=== PATIENT | female | born 1960 | race Caucasian/White ===

== ENCOUNTER 2016-07-10 20:29 | Emergency (ER) | payer OTHER ==
[~2016-07-10] VITALS: Ht 170.2 cm; Wt 79.6 kg
[~2016-07-10 20:29] MED LIST: ONDA4TAB7 SL
[2016-07-10 20:32] VITALS: TEMP 37.5; Ht 170.2 cm; Wt 79.6 kg
[2016-07-10] MEDS ORDERED: MELO7.5T5 PO (21:14)
[2016-07-10] MEDS ORDERED: ARIP1TAB8 PO (21:14)
[2016-07-10] MEDS ORDERED: HYDROCODONE/ACETAMOPHEN 5/325MG TAB PO STA (21:20)
[2016-07-10] MEDS ORDERED: KETOROLAC TROMETHAMINE 30 MG/ML VIAL IV STA (21:20)
[2016-07-10 21:47] LABS: HEMATOCRIT 35.2 % (37-47); MEAN CELL VOLUME 86.1 fL (80-100); MEAN CORPUSCULAR HEMOGLOBIN 29.3 pg (25-34); MEAN CORPUSCULAR HGB CONC 34.1 g/dl (32-36); MEAN PLATELET VOLUME 8.9 fL (7.4-10.4); PLATELET COUNT 176 K/uL (130-400); RED BLOOD COUNT 4.09 M/uL (4.2-5.4); WHITE BLOOD COUNT 7.77 K/uL (4.8-10.8)
[2016-07-10 21:59] LABS: URINE APPEARANCE CLEAR (CLEAR); URINE BILIRUBIN NEG (NEG); URINE COLOR DK YELLOW; URINE EPITHELIAL CELL AUTO 20-30 /lpf (0-5); URINE NITRITE NEG (NEG); URINE SPECIFIC GRAVITY 1.018 (1.000-1.030); UROBILINOGEN NEG (NEG); ZZUR CULT IF INDIC CLEAN CATCH NO
[2016-07-10 22:00] LABS: INR 1.1 (0.9-1.1); MANUAL MICROSCOPIC REQUIRED? NO; PARTIAL THROMBOPLASTIN RATIO 1.3; PROTHROMBIN TIME (PATIENT) 11.4 SECONDS (9.0-12.0); REVIEW REQ? NO
[2016-07-10 22:08] LABS: POINT OF CARE TROPONIN I 0.02 ng/ml (0-0.045)
[2016-07-10 22:15] LABS: ALT/SGPT 61 U/L (12-78); BLOOD UREA NITROGEN 11 mg/dl (7-18); BUN/CREATININE RATIO 13.6 (10-20); CARBON DIOXIDE 26 mmol/L (21-32); CHLORIDE 99 mmol/L (98-107); GLUCOSE 134 mg/dl (70-99); POTASSIUM 3.6 mmol/L (3.5-5.1); SODIUM 134 mmol/L (136-145)
[2016-07-10 22:20] LABS: ALKALINE PHOSPHATASE 741 U/L (45-117); AST/SGOT 120 U/L (15-37)
[2016-07-10 22:23] LABS: CALCIUM 9.9 mg/dl (8.5-10.1)
--- NOTE | 2016-07-10 22:28 | DIAGNOSTIC IMAGING REPORT ---
LUMBAR SPINE 5 VIEWS HISTORY: Pain low back pain/tension SI joints COMPARISON: None. FINDINGS: There is no fracture. Mild scoliosis. Mild degenerative disc change. IMPRESSION: Mild degenerative change. Mild scoliosis. No acute process. Electronically signed by: Shiraz Marquez M.D. 07/10/2016 10:25 PM Dictated Date/Time: 07/10/2016 10:25 PM
--- NOTE | 2016-07-10 22:29 | DIAGNOSTIC IMAGING REPORT ---
CHEST 2 VIEWS ROUTINE CLINICAL HISTORY: dizzy/ shoulder pain pain COMPARISON STUDY: No previous studies for comparison. FINDINGS: The bones soft tissues and hemidiaphragms are normal. The cardiomediastinal silhouette is normal. The lungs are clear. The pulmonary vasculature is normal. IMPRESSION: Negative chest. Electronically signed by: Shiraz Marquez M.D. 07/10/2016 10:27 PM Dictated Date/Time: 07/10/2016 10:27 PM
--- NOTE | 2016-07-10 22:29 | DIAGNOSTIC IMAGING REPORT ---
LEFT SHOULDER MIN 2 VIEWS ROUTINE CLINICAL HISTORY: shoulder pain/injury trauma. Pain. COMPARISON: None. DISCUSSION: Moderate degenerative change glenohumeral as well as acromioclavicular joint. No well-defined acute bony abnormality. Moderate degenerative change. No acute process. IMPRESSION: Moderate degenerative change. No acute process. Electronically signed by: Shiraz Marquez M.D. 07/10/2016 10:26 PM Dictated Date/Time: 07/10/2016 10:26 PM
--- NOTE | 2016-07-10 22:30 | DIAGNOSTIC IMAGING REPORT ---
THORACIC SPINE 3 VIEWS HISTORY: Pain mid to lower thoracic spine pain/injury COMPARISON: None. FINDINGS: There is no fracture. Mild scoliosis. Moderate degenerative disc change. IMPRESSION: No fracture or subluxation within the thoracic spine. Moderate degenerative change. Electronically signed by: Shiraz Marquez M.D. 07/10/2016 10:28 PM Dictated Date/Time: 07/10/2016 10:27 PM
[2016-07-10 22:31] LABS: POLYCHROMASIA 1+
[2016-07-10 22:33] LABS: BASO ABS # 0.08 K/uL (0-0.2); COMPLETE YES; LYMPH ABS # 1.71 K/uL (1.2-3.4)
[2016-07-11] MEDS ORDERED: NORCO 5/325MG HOME PACK PO ONE (00:30)
[2016-07-11] MEDS ORDERED: HYDR-5688 PO (00:36)
--- NOTE | 2016-07-11 00:38 | EMERGENCY ROOM VISIT NOTE ---
History First contact with patient: 20:43 Chief Complaint: BACK PAIN Stated Complaint: BACK/ABD PAIN, DIZZY, SHAKEY History of Present Illness The patient is a 56 year old female who presents to the Emergency Room with complaints of back pain. The patient states that a few days ago she was lifting a bucket which weighed approximately 35 pounds while she was bent over in a closet and felt a pop in her mid back and a burning sensation across her upper back on the left side. Since that time she's also had some low back discomfort. The patient states that the pain does not radiate down her legs but she does have some discomfort in her thighs bilaterally. She also admits to some pain into her left shoulder. She states that she has been taking Tylenol with some relief of the pain. She states that her back was feeling better but today it started bothering her again. The patient had Mobic at home from a prior injury which she took without any relief. The patient also states that she feels slightly nauseated but has not vomited. She denies any change in bowel habits. The patient denies any urinary symptoms of frequency, urgency , dysuria or hematuria. The patient denies any abdominal pain. The patient denies any chest pain or shortness of breath. The patient states she has not gone to her family doctor because she has been going to [place] to visit her . She states "I do not have time to go to the doctor". Review of Systems 10 system review was performed and was negative unless stated otherwise history of present illness. Past Medical/Surgical History Medical Problems: (1) HTN (hypertension) (2) Kidney stone Surgical Problems: (1) H/O mastectomy Family History FH: HTN (hypertension) Social History Smoking Status: Never Smoker Marital Status: Housing Status: lives with family Occupation Status: employed Current/Historical Medications Scheduled Aripiprazole (Abilify), 10 MG PO HS Scheduled PRN Meloxicam (Mobic), 7.5 MG PO DAILY PRN for Pain Allergies Coded Allergies: Latex1 -Allergic Contact Dermititis (Verified Allergy, Unknown, BURNING, DERMATITIS, 05/14/14) Physical Exam Vital Signs Date Time Temp Pulse Resp B/P Pulse Ox O2 Delivery O2 Flow Rate FiO2 07/11/16 00:11 77 18 124/73 98 Room Air 07/10/16 22:35 88 18 122/69 99 Room Air 07/10/16 20:32 37.5 121 18 140/84 96 Room Air Physical Exam GENERAL: 56-year-old white female appears in no acute distress. MENTAL Status: Alert and oriented 3. MOUTH: Mucosa is moist NECK: Supple, no lymphadenopathy noted. No carotid bruits noted. LUNGS: Clear auscultation without wheezes rales or rhonchi. CARDIAC: Regular rate and rhythm without murmur. Pulses is full and equal throughout. BACK: No CVA tenderness noted. ABDOMEN: Positive bowel sounds all 4 quadrants. Soft, nontender to palpation without organomegaly or masses. THORACIC SPINE: No gross bony deformity noted. The patient is tender to palpation over the mid to lower thoracic spinous processes. LUMBAR SPINE: No gross bony deformity noted. No erythema or edema noted. The patient has tenderness palpation over the lower lumbar region bilaterally especially over the SI joints. Limited range of motion secondary to pain. LEFT shoulder: No gross bony deformity noted. The patient is tender to palpation over the mid to superior scapular region as well as over the humeral head. She has full range of motion of the shoulder. [employer] strength is 5 out of 5 as compared to the right. NEURO: Patient is able to heel and toe walk without difficulty. Bilateral patellar and Achilles reflexes are 2+. Negative straight leg raise bilaterally. Medical Decision & Procedures ER Provider Diagnostic Interpretation: THORACIC SPINE 3 VIEWS HISTORY: Pain mid to lower thoracic spine pain/injury COMPARISON: None. FINDINGS: There is no fracture. Mild scoliosis. Moderate degenerative disc change. IMPRESSION: No fracture or subluxation within the thoracic spine. Moderate degenerative change. Electronically signed by: Shiraz Marquez M.D. 07/10/2016 10:28 PM LEFT SHOULDER MIN 2 VIEWS ROUTINE CLINICAL HISTORY: shoulder pain/injury trauma. Pain. COMPARISON: None. DISCUSSION: Moderate degenerative change glenohumeral as well as acromioclavicular joint. No well-defined acute bony abnormality. Moderate degenerative change. No acute process. IMPRESSION: Moderate degenerative change. No acute process. Electronically signed by: Shiraz Marquez M.D. LUMBAR SPINE 5 VIEWS HISTORY: Pain low back pain/tension SI joints COMPARISON: None. FINDINGS: There is no fracture. Mild scoliosis. Mild degenerative disc change. IMPRESSION: Mild degenerative change. Mild scoliosis. No acute process. Electronically signed by: Shiraz Marquez M.D. 07/10/2016 10:25 PM CHEST 2 VIEWS ROUTINE CLINICAL HISTORY: dizzy/ shoulder pain pain COMPARISON STUDY: No previous studies for comparison. FINDINGS: The bones soft tissues and hemidiaphragms are normal. The cardiomediastinal silhouette is normal. The lungs are clear. The pulmonary vasculature is normal. IMPRESSION: Negative chest. Electronically signed by: Shiraz Marquez M.D. Laboratory Results 07/10/16 21:40 Red Blood Count 4.09, Mean Corpuscular Volume 86.1, Mean Corpuscular Hemoglobin 29.3, Mean Corpuscular Hemoglobin Concent 34.1, Mean Platelet Volume 8.9 07/10/16 21:40 Test 07/10/16 21:40 07/10/16 21:48 07/10/16 23:55 White Blood Count 7.77 K/uL (4.8-10.8) Red Blood Count 4.09 M/uL (4.2-5.4) Hemoglobin 12.0 g/dL (12.0-16.0) Hematocrit 35.2 % (37-47) Mean Corpuscular Volume 86.1 fL (80-100) Mean Corpuscular Hemoglobin 29.3 pg (25-34) Mean Corpuscular Hemoglobin Concent 34.1 g/dl (32-36) Platelet Count 176 K/uL (130-400) Mean Platelet Volume 8.9 fL (7.4-10.4) RDW Standard Deviation 51.2 fL (36.4-46.3) RDW Coefficient of Variation 16.3 % (11.5-14.5) Nucleated RBC Absolute Count (auto) 0.18 K/uL (0-0) Neutrophils % (Manual) 57.0 % Lymphocytes % (Manual) 22.0 % Monocytes % (Manual) 18.0 % Eosinophils % (Manual) 1.0 % Basophils % (Manual) 1.0 % Myelocytes % 1.0 % Nucleated Red Blood Cells % 2.3 % Neutrophils # (Manual) 4.43 K/uL (1.4-6.5) Total Absolute Neutrophils 4.43 K/uL (1.4-6.5) Lymphocytes # (Manual) 1.71 K/uL (1.2-3.4) Total Absolute Lymphocytes 1.71 K/uL (1.2-3.4) Monocytes # (Manual) 1.40 K/uL (0.11-0.59) Eosinophils # (Manual) 0.08 K/uL (0-0.5) Basophils # (Manual) 0.08 K/uL (0-0.2) Myelocytes # 0.08 K/uL (0-0) Polychromasia 1+ Prothrombin Time 11.4 SECONDS (9.0-12.0) Prothromb Time International Ratio 1.1 (0.9-1.1) Activated Partial Thromboplast Time 33.6 SECONDS (21.0-31.0) Partial Thromboplastin Ratio 1.3 Urine Color DK YELLOW Urine Appearance CLEAR (CLEAR) Urine pH 5.0 (4.5-7.5) Urine Specific Starbuck 1.018 (1.000-1.030) Urine Protein NEG (NEG) Urine Glucose (UA) NEG (NEG) Urine Ketones NEG (NEG) Urine Occult Blood NEG (NEG) Urine Nitrite NEG (NEG) Urine Bilirubin NEG (NEG) Urine Urobilinogen NEG (NEG) Urine Leukocyte Esterase SMALL (NEG) Urine WBC (Auto) 5-10 /hpf (0-5) Urine RBC (Auto) 0-4 /hpf (0-4) Urine Hyaline Casts (Auto) 5-10 /lpf (0-5) Urine Epithelial Cells (Auto) 20-30 /lpf (0-5) Urine Bacteria (Auto) NEG (NEG) Anion Gap 9.0 mmol/L (3-11) Est Creatinine Clear Calc Drug Dose 83.3 ml/min Estimated GFR () 94.2 Estimated GFR (Non- 81.3 BUN/Creatinine Ratio 13.6 (10-20) Calcium Level 9.9 mg/dl (8.5-10.1) Total Bilirubin 1.2 mg/dl (0.2-1) Direct Bilirubin 0.6 mg/dl (0-0.2) Aspartate Amino Transf (AST/SGOT) 120 U/L (15-37) Alanine Aminotransferase (ALT/SGPT) 61 U/L (12-78) Alkaline Phosphatase 741 U/L (45-117) Total Creatine Kinase 155 U/L (26-192) Creatine Kinase MB < 0.5 ng/ml (0.5-3.6) Creatine Kinase MB Ratio (0-3.0) Total Protein 7.0 gm/dl (6.4-8.2) Albumin 2.7 gm/dl (3.4-5.0) Lipase 169 U/L (73-393) WM-Nsm-D-Type Natriuretic Peptide 215 pg/ml (0-900) Bedside Troponin I 0.020 ng/ml (0-0.045) Medications Administered Medications (Trade) Dose Ordered Sig/Allison Route Start Time Stop Time Status Last Admin Dose Admin Ketorolac Tromethamine (Toradol Inj) 30 mg NOW STAT IV 07/10/16 21:20 07/10/16 21:24 DC 07/10/16 21:31 30 MG Acetaminophen/ Hydrocodone Bitart ([place] 5/325 Tab) 2 tab NOW STAT PO 07/10/16 21:20 07/10/16 21:24 DC 07/10/16 21:30 2 TAB ECG Indication: other (di) Rhythm: normal sinus Findings: no acute ischemic change ED Course The patient was evaluated. IV access was obtained. The patient was placed on a monitor. EKG was ordered and interpreted by myself as above without any acute findings. CBC and differential, renal profile, LFTs and lipase levels were ordered. CK-MB, coags, pointing care troponin and BNP were ordered. Chest x-ray was ordered and interpreted by the radiologist and myself as above without any acute findings. Left shoulder, thoracic spine, lumbar spine x-rays were ordered and interpreted by the radiologist and myself as above with degenerative changes but no acute findings.. The patient was given Toradol 30 mg IV and [place] 5/325 mg 2 tablets by mouth for pain. The patient's labs are reviewed. The patient's alkaline phosphatase and some liver enzymes were elevated. I discussed the case with Dr. Ortega who agreed with treatment plan. Repeat EKG was ordered and reviewed without any acute ST changes. Initial troponin was 0.02 and repeat in 2 hours was unchanged. Ultrasound of the gallbladder was ordered and revealed a normal gallbladder but there were some hyper echogenic and hypoechogenic lesions on the liver suggesting cysts and fatty liver as well as possible hemangioma but a follow-up MRI on a nonemergent basis was recommended. I discussed with the patient about staying as an inpatient for further evaluation. The patient does not want to stay. The patient was informed of all findings. The patient was given a Glenwood home pack to take as directed. The patient was discharged home in stable condition with family members driving. Medical Decision Differential diagnosis include acute cholecystitis, neoplasm, compression fracture, spinal fracture, muscular strain, acute NM Impression Primary Impression: Thoracolumbar back pain Additional Impressions: Elevated LFTs Abnormal liver ultrasound Departure Information Dispostion Home / Self-Care Condition GOOD Prescriptions Hydrocodone/Acetaminophen 5MG/325MG (Glenwood 5MG/325MG) Tab 1-2 TABLET PO Q6 Y for Pain for 3 Days, #20 TAB For Initial Treatment Prov: Yasemin Marquez PA-C 07/11/16 Referrals No Doctor, Assigned (PCP) Forms HOME CARE DOCUMENTATION FORM, IMPORTANT VISIT INFORMATION Patient Instructions My Social Media Simplified Additional Instructions Take Glenwood as needed for pain. Do not drive while taking the Glenwood. Do not take additional Tylenol while taking the [place]wood. Avoid staying in any one position for any extended period of time. May try ice and/or heat to affected area intermittently over the next 24 hours. Follow-up with your family physician next week for reevaluation and referral for MRI of the liver. If you have any worsening of symptoms, severe chest pain, shortness of breath, uncontrolled nausea vomiting return to ER immediately. Problem Qualifiers
[2016-07-11 00:43] VITALS: BP 124/73; PULSE 77; O2SAT 98
--- NOTE | 2016-07-11 07:08 | DIAGNOSTIC IMAGING REPORT ---
ULTRASOUND RIGHT UPPER QUADRANT ABDOMEN CLINICAL HISTORY: Elevated hepatic transaminases. COMPARISON STUDY: No priors. TECHNIQUE: Real-time, grayscale, and color flow sonography of the right upper quadrant of the abdomen was performed. Images are reviewed in the transverse and longitudinal planes. FINDINGS: Liver: The liver is enlarged, measuring over 20 cm in length. The liver demonstrates heterogeneously increased echotexture consistent with hepatic steatosis. There is no intrahepatic biliary ductal dilatation. The main portal vein is patent. There is an 8 mm well-circumscribed hypoechoic lesion within the anterior right lobe. A 3.4 cm indeterminate hyperechoic focus is present within the right hepatic lobe. Gallbladder: The gallbladder is normal in appearance. No gallstones are identified. There is no gallbladder wall thickening or pericholecystic fluid. A sonographic Lechuga's sign is reportedly absent. The common bile duct measures up to 0.5 cm in diameter. Pancreas: Visualized portions of the pancreatic head and body are normal in appearance. The splenic vein is patent. Right kidney: Survey images of the right kidney demonstrate normal size and echotexture. There is no hydronephrosis. Ascites: None. IMPRESSION: 1. No acute sonographic abnormality is identified. No gallstones are seen. 2. Hepatomegaly and hepatic steatosis. 3. There is a large indeterminate hyperechoic focus present in the right lobe as well as an 8 mm hypoechoic lesion in the right lobe. These are of indeterminant significance and may represent hemangiomas, foci of more focal fat/fatty sparing, or focal nodular hyperplasia. Correlation with a nonemergent contrast-enhanced MRI of the liver is recommended for further interrogation. Electronically signed by: Donavan Del Toro M.D. 07/11/2016 7:06 AM Dictated Date/Time: 07/11/2016 7:03 AM
[2016-09-22] MEDS ORDERED: DIPH25CA5 PO (20:30)
[2016-10-25] MEDS ORDERED: DXM/4 PO ×2 (14:21)
[2016-10-25] MEDS ORDERED: ONDA8TAB6 PO (14:21)
[2016-10-25] MEDS ORDERED: OXYC1TAB3 PO (14:21)
[2016-10-25] MEDS ORDERED: PROC1TAB5 PO (14:21)
== END 2016-07-11 00:55 | disposition home or self-care (01) ==
LOC: C.EDB 20:30
DX: M54.5 Low back pain (principal); R94.5 Abnormal results of liver function studies; I10 Essential (primary) hypertension; Z87.442 Personal history of urinary calculi; Z82.49 Family history of ischemic heart disease and other diseases of the circulatory system; Z79.899 Other long term (current) drug therapy

== ENCOUNTER 2016-09-22 19:48 | Emergency (ER) | payer OTHER ==
[~2016-09-22] VITALS: Ht 170.2 cm; Wt 72.3 kg
[~2016-09-22 19:48] MED LIST changes: +ARIP1TAB8 PO; +MELO7.5T5 PO; -ONDA4TAB7 SL
[2016-09-22 19:51] VITALS: TEMP 36.6; Ht 170.2 cm; Wt 72.3 kg
[2016-09-22] MEDS ORDERED: SODIUM CHLORIDE 0.9% 1000ML 1,000 ML IV STA ×2 (20:10)
[2016-09-22] MEDS ORDERED: HYDR-5688 PO (20:24)
[2016-09-22 20:27] LABS: HEMATOCRIT 34.8 % (37-47); MEAN CELL VOLUME 92.6 fL (80-100); MEAN CORPUSCULAR HEMOGLOBIN 30.3 pg (25-34); MEAN CORPUSCULAR HGB CONC 32.8 g/dl (32-36); RED BLOOD COUNT 3.76 M/uL (4.2-5.4); WHITE BLOOD COUNT 8.47 K/uL (4.8-10.8)
[2016-09-22] MEDS ORDERED: LAMO25TA PO (20:27)
[2016-09-22] MEDS ORDERED: HYDR25CA PO (20:28)
[2016-09-22] MEDS ORDERED: ESCI1TAB6 PO (20:30)
[2016-09-22] MEDS ORDERED: BND25 PO (20:30)
[2016-09-22] MEDS ORDERED: PRLSR20 PO (20:31)
[2016-09-22 20:32] LABS: URINE APPEARANCE CLEAR (CLEAR); URINE BILIRUBIN NEG (NEG); URINE COLOR YELLOW; URINE NITRITE NEG (NEG); URINE PH 5.5 (4.5-7.5); URINE SPECIFIC GRAVITY 1.012 (1.000-1.030); UROBILINOGEN NEG (NEG)
[2016-09-22 20:40] VITALS: O2SAT 94
[2016-09-22 20:43] LABS: ALT/SGPT 96 U/L (12-78); BLOOD UREA NITROGEN 8 mg/dl (7-18); BUN/CREATININE RATIO 9.3 (10-20); CALCIUM 10.2 mg/dl (8.5-10.1); CARBON DIOXIDE 23 mmol/L (21-32); CHLORIDE 100 mmol/L (98-107); CREATININE 0.84 mg/dl (0.60-1.20); GLUCOSE 99 mg/dl (70-99); MAGNESIUM 1.9 mg/dl (1.8-2.4); MANUAL MICROSCOPIC REQUIRED? NO; POTASSIUM 3.7 mmol/L (3.5-5.1); REVIEW REQ? NO; SODIUM 135 mmol/L (136-145)
[2016-09-22 20:52] LABS: ALKALINE PHOSPHATASE 480 U/L (45-117); AST/SGOT 218 U/L (15-37)
[2016-09-22] MEDS ORDERED: ONDANSETRON 8 MG/54 ML D5W IV STA (21:11)
[2016-09-22 21:47] LABS: MEAN PLATELET VOLUME 9.1 fL (7.4-10.4); PLATELET COUNT 65 K/uL (130-400)
[2016-09-22 21:48] LABS: ANISOCYTOSIS PRESENT; BASOPHIL % 3.5 %; COMPLETE YES; EOSINOPHIL % 0.9 %; LYMPH ABS # 2.18 K/uL (1.2-3.4); LYMPHOCYTE % 25.7 %; META ABS # 0.37 K/uL (0-0); METAMYELOCYTE % 4.4 %; MYELOCYTE % 3.5 %; NEUTROPHILS % 49.6 %; PLT ESTIMATE DECREASED; POLYCHROMASIA 2+
--- NOTE | 2016-09-22 22:13 | DIAGNOSTIC IMAGING REPORT ---
SINGLE VIEW CHEST CLINICAL HISTORY: Nausea. Vomiting. Weight loss FINDINGS: An AP, portable, upright chest radiograph is compared to report of study dated 07/10/2016. The examination is degraded by portable technique and patient rotation. The heart is top normal for projection. The pulmonary vasculature is noncongested. Bibasilar airspace opacities likely represent atelectasis. Chronic interstitial thickening is unchanged no large pleural effusion or pneumothorax is seen. The skeletal structures are osteopenic. There are healed right-sided rib fractures. IMPRESSION: Bibasilar airspace opacities likely represent atelectasis. Clinical correlation will be required. Electronically signed by: Donavan Del Toro M.D. 09/22/2016 10:12 PM Dictated Date/Time: 09/22/2016 10:09 PM
[2016-09-22] MEDS ORDERED: OPTIRAY 320 IV PRN (23:15)
[2016-09-23] MEDS ORDERED: ONDANSETRON HOME PACK 4MG OD TAB PO ONE (01:30)
[2016-09-23 01:39] VITALS: BP 150/85; PULSE 85; O2SAT 96
--- NOTE | 2016-09-23 03:22 | EMERGENCY ROOM VISIT NOTE ---
History Report prepared by Jareth: Nona Mims Under the Supervision of: Dr. John Montesinos M.D. First contact with patient: 20:10 Chief Complaint: VOMITING Stated Complaint: VOMITING,NAUESA History of Present Illness The patient is a 56 year old female who presents to the Emergency Room with complaints of intermittent vomiting for the past several weeks. The patient reports that she has not been well and thought it would get better on its own. She states she did go to her PCP who gave her omeprazole. She states that she has taken the medicine twice with no relief. The patient's family notes that she has had a large amount of weight loss in the last two months. The patient reports over the past six she has lost 47 pounds. The patient complains of weakness, nausea, loss of appetite, shortness of breath when walking, and dizziness. The patient notes that when she moves her head it feels like the room is spinning and when she stands she becomes lightheaded. The patient notes that she has vomited twice. Pt denies LOC, headache, fevers, chills, diaphoresis , visual changes, neck pain, chest pain, abdominal pain, back pain, diarrhea, melena, hematochezia, urinary symptoms, numbness, lymphadenopathy, rash, or other complaints. Source of History: patient Onset: several weeks Position: other (global) Quality: other (global) Timing: intermittent Associated Symptoms: + SOB, + nausea, + weakness Note: The patient complains of loss of appetite and dizziness. Review of Systems See HPI for pertinent positives and negatives. A total of ten systems were reviewed and were otherwise negative. Past Medical & Surgical Medical Problems: (1) Breast CA (2) HTN (hypertension) (3) Kidney stone Surgical Problems: (1) H/O mastectomy Family History FH: HTN (hypertension) Social History Smoking Status: Never Smoker Marital Status: Housing Status: lives with family Occupation Status: employed Current/Historical Medications Scheduled Aripiprazole (Abilify), 10 MG PO HS Diphenhydramine Hcl (Benadryl), 25 MG PO HS Escitalopram Oxalate (Lexapro), 5 MG PO DAILY Hydroxyzine Pamoate (Vistaril), 1 CAP PO TID Lamotrigine (Lamictal), 50 MG PO QAM Omeprazole (Prilosec), 20 MG PO DAILY Scheduled PRN Hydrocodone/Acetaminophen 5MG/325MG ([place] 5MG/325MG), 1 TAB PO TID PRN for Pain Meloxicam (Mobic), 7.5 MG PO DAILY PRN for Pain Allergies Coded Allergies: Latex1 -Allergic Contact Dermititis (Verified Allergy, Unknown, BURNING, DERMATITIS, 09/22/16) Physical Exam Vital Signs Date Time Temp Pulse Resp B/P (MAP) Pulse Ox O2 Delivery O2 Flow Rate FiO2 09/23/16 01:39 85 16 150/85 96 09/23/16 01:03 87 09/22/16 23:55 85 16 141/81 93 Room Air 09/22/16 21:41 87 16 142/79 92 Room Air 09/22/16 20:51 81 09/22/16 20:40 94 Room Air 09/22/16 20:37 85 148/89 93 132/85 106 128/85 09/22/16 19:51 36.6 112 18 149/90 96 Room Air Physical Exam GENERAL: Awake, alert, tired appearing, in no distress HENT: Normocephalic, atraumatic. Oropharynx unremarkable. EYES: Normal conjunctiva. Sclera non-icteric. NECK: Supple. No nuchal rigidity. FROM. No JVD. RESPIRATORY: Clear to auscultation. CARDIAC: Regular rate, normal rhythm. Extremities warm and well perfused. Pulses equal. ABDOMEN: Soft, non-distended. No tenderness to palpation. No rebound or guarding. No masses. RECTAL: Deferred. MUSCULOSKELETAL: Chest examination reveals no tenderness. The back is symmetrical on inspection without obvious abnormality. There is no CVA tenderness to palpation. No joint edema. LOWER EXTREMITIES: Calves are equal size bilaterally and non-tender. Trace edema. No discoloration. NEURO: Normal sensorium. No sensory or motor deficits noted. SKIN: No rash or jaundice noted. Medical Decision & Procedures ER Provider Diagnostic Interpretation: Radiology results as stated below per my review and radiologist interpretation: SINGLE VIEW CHEST CLINICAL HISTORY: Nausea. Vomiting. Weight loss FINDINGS: An AP, portable, upright chest radiograph is compared to report of study dated 07/10/2016. The examination is degraded by portable technique and patient rotation. The heart is top normal for projection. The pulmonary vasculature is noncongested. Bibasilar airspace opacities likely represent atelectasis. Chronic interstitial thickening is unchanged no large pleural effusion or pneumothorax is seen. The skeletal structures are osteopenic. There are healed right-sided rib fractures. IMPRESSION: Bibasilar airspace opacities likely represent atelectasis. Clinical correlation will be required. Electronically signed by: Donavan Del Toro M.D. 09/22/2016 10:12 PM Dictated Date/Time: 09/22/2016 10:[address] ABDOMEN & PELVIS: Findings: Mottled appearance of the osseous structures, may be from metastasis or multiple myeloma. No evidence of appendicitis or colitis. Nonobstructive bowel gas pattern. Small left pleural effusion. Fatty liver. Right breast implant. Radiologist: Suri Hamilton M.D. Study ready at 00:01 and initial results transmitted at 00:51. US GALLBLADDER: Findings: No gallstones or biliary ductal dilation. Echogenic liver suggesting fatty infiltration or hepatocellular disease. No hyperechoic foci in the liver, the largest measures 1 cm. Small hyperechoic focus related to the right kidney. Radiologist: Suri Hamilton M.D. Study ready at 23:47 and intial results transmitted at 23:49. Laboratory Results 09/22/16 20:15 Red Blood Count 3.76, Mean Corpuscular Volume 92.6, Mean Corpuscular Hemoglobin 30.3, Mean Corpuscular Hemoglobin Concent 32.8, Mean Platelet Volume 9.1 09/22/16 20:15 Test 09/22/16 20:15 White Blood Count 8.47 K/uL (4.8-10.8) Red Blood Count 3.76 M/uL (4.2-5.4) Hemoglobin 11.4 g/dL (12.0-16.0) Hematocrit 34.8 % (37-47) Mean Corpuscular Volume 92.6 fL (80-100) Mean Corpuscular Hemoglobin 30.3 pg (25-34) Mean Corpuscular Hemoglobin Concent 32.8 g/dl (32-36) Platelet Count 65 K/uL (130-400) Mean Platelet Volume 9.1 fL (7.4-10.4) RDW Standard Deviation 62.1 fL (36.4-46.3) RDW Coefficient of Variation 18.6 % (11.5-14.5) Nucleated RBC Absolute Count (auto) 2.13 K/uL (0-0) Neutrophils % (Manual) 49.6 % Lymphocytes % (Manual) 25.7 % Monocytes % (Manual) 12.4 % Eosinophils % (Manual) 0.9 % Basophils % (Manual) 3.5 % Metamyelocytes % 4.4 % Myelocytes % 3.5 % Nucleated Red Blood Cells % 25.2 % Neutrophils # (Manual) 4.20 K/uL (1.4-6.5) Total Absolute Neutrophils 4.20 K/uL (1.4-6.5) Lymphocytes # (Manual) 2.18 K/uL (1.2-3.4) Total Absolute Lymphocytes 2.18 K/uL (1.2-3.4) Monocytes # (Manual) 1.05 K/uL (0.11-0.59) Eosinophils # (Manual) 0.08 K/uL (0-0.5) Basophils # (Manual) 0.30 K/uL (0-0.2) Metamyelocytes # 0.37 K/uL (0-0) Myelocytes # 0.30 K/uL (0-0) Platelet Estimate DECREASED Polychromasia 2+ Anisocytosis PRESENT Urine Color YELLOW Urine Appearance CLEAR (CLEAR) Urine pH 5.5 (4.5-7.5) Urine Specific [place] 1.012 (1.000-1.030) Urine Protein NEG (NEG) Urine Glucose (UA) NEG (NEG) Urine Ketones NEG (NEG) Urine Occult Blood NEG (NEG) Urine Nitrite NEG (NEG) Urine Bilirubin NEG (NEG) Urine Urobilinogen NEG (NEG) Urine Leukocyte Esterase NEG (NEG) Anion Gap 12.0 mmol/L (3-11) Est Creatinine Clear Calc Drug Dose 71.0 ml/min Estimated GFR () 88.8 Estimated GFR (Non- 76.6 BUN/Creatinine Ratio 9.3 (10-20) Calcium Level 10.2 mg/dl (8.5-10.1) Magnesium Level 1.9 mg/dl (1.8-2.4) Total Bilirubin 1.3 mg/dl (0.2-1) Direct Bilirubin 0.5 mg/dl (0-0.2) Aspartate Amino Transf (AST/SGOT) 218 U/L (15-37) Alanine Aminotransferase (ALT/SGPT) 96 U/L (12-78) Alkaline Phosphatase 480 U/L (45-117) Total Creatine Kinase 63 U/L (26-192) Creatine Kinase MB < 0.5 ng/ml (0.5-3.6) Creatine Kinase MB Ratio (0-3.0) Troponin I < 0.015 ng/ml (0-0.045) Total Protein 7.1 gm/dl (6.4-8.2) Albumin 3.2 gm/dl (3.4-5.0) Lipase 217 U/L (73-393) Thyroid Stimulating Hormone (TSH) 6.460 uIu/ml (0.300-4.500) Laboratory results reviewed by me Medications Administered Medications (Trade) Dose Ordered Sig/Allison Route Start Time Stop Time Status Last Admin Dose Admin Sodium Chloride 1,000 ml @ 125 mls/hr Q8H STAT IV 09/22/16 20:10 09/23/16 02:11 DC 09/22/16 20:10 125 MLS/HR Sodium Chloride 1,000 ml @ 999 mls/hr Q1H1M STAT IV 09/22/16 20:10 09/22/16 21:10 DC 09/22/16 20:10 999 MLS/HR Ondansetron HCl (Zofran 8mg Iv) 8 mg NOW STAT IV 09/22/16 21:11 09/22/16 21:13 DC 09/22/16 21:11 8 MG Ondansetron HCl (ZOFRAN ODT 4MG Home Pack) 1 homepack UD ONCE PO 09/23/16 01:30 09/23/16 01:31 DC 09/23/16 01:37 1 HOMEPACK ECG Indication: vomiting Rate (beats per minute): 86 Rhythm: normal sinus Findings: no acute ischemic change, no ectopy ED Course 2010: Ordered NSS 1000 ml @ 999 mls/hr IV, NSS 1000 ml @ 125 mls/hr IV. 2018: The patient was evaluated in room C10. A complete history and physical exam was performed. 2110: Ordered Zofran 8mg Iv 8mg IV. 0102: I reevaluated the patient and updated her about the possibilities of her results. 0109: Discussed the patient's case Dr. Gordon. He is going to message oncology and her PCP to arrange a follow up immediately. 0127: I reevaluated the patient and she is comfortable with going home and doing everything as an outpatient. Discussed results and discharge instructions : She verbalized understanding and agreement. The patient is ready for discharge. 0130: Ordered Ondansetron HCl 1 homepack PO. Medical Decision Medication Reconciliation: I attest that I have personally reviewed the patient' s current medication list Blood pressure screening: Patient was found to have an elevated blood pressure and was referred to their primary doctor for recheck and further treatment. Triage Nursing notes reviewed. The patient's presentation and history were concerning for nausea, vomiting, weight loss, weakness Etiologies such as malignancy, peptic ulcer disease, biliary pathology, pancreatitis, metabolic, infection, hypo/hyperglycemia, electrolyte abnormalities, cardiac sources, intracerebral event, toxicologic, neurologic, as well as others were entertained. The patient was evaluated. She was hemodynamically stable. She was hydrated. Blood work was obtained. Imaging was ordered. The patient had an unremarkable CBC except for thrombocytopenia. Her chemistry panel revealed moderate elevations of liver function tests as well as alkaline phosphatase. The patient had an unremarkable lipase. Urinalysis unremarkable. Cardiac markers negative. The patient had no evidence of cholecystitis on gallbladder ultrasound. Her CT imaging of the pelvis revealed no evidence of intra- abdominal pathology however she had significant osseous abnormality which was concerning for multiple myeloma versus metastatic disease. Patient does have a history of breast cancer about 11 years ago. As the patient is doing relatively well I discussed conservative management with her and family. They do feel very comfortable with this. I did [facility] the [facility] who will message her primary office as well as hematology/oncology. The patient will contact the office Friday morning for further direction. If she worsens in any way she will be back. She was counseled on avoidance of Tylenol and alcohol due to the liver functions. She was also counseled on avoidance of aspirin and anti- inflammatories secondary to her thermostat gi. Bleeding precautions are given. The patient felt comfortable as did family. She worsens in any way she will be back to emergency department immediately. She was given Zofran to go home with. I gave my usual and customary discussion regarding this issue. By the evaluation outlined above other emergent etiologies such as those listed in the differential, as well as others, were deemed relatively unlikely. The patient was educated about the findings as listed above. All questions were answered and the patient was pleased with the treatment. Return instructions were outlined and the patient was discharged in stable condition. The patient was referred to patient was for follow-up for a recheck of the current condition. Consults Time Called: 101 Consulting Physician: Dr. Gordon Returned Call: 108 Discussed the patient's case Dr. Gordon. He is going to message oncology and her PCP to arrange a follow up immediately. Impression Primary Impression: Vomiting Additional Impressions: Elevated LFTs Thrombocytopenia mestasis vs multiple myeloma Scribe Attestation The scribe's documentation has been prepared under my direction and personally reviewed by me in its entirety. I confirm that the note above accurately reflects all work, treatment, procedures, and medical decision making performed by me. Departure Information Dispostion Home / Self-Care Referrals Kristel Yañez D.O. (PCP) Forms HOME CARE DOCUMENTATION FORM, IMPORTANT VISIT INFORMATION Patient Instructions My [facility] Additional Instructions Contact your primary office today, Friday, September 23. A follow-up will be necessary this week regarding your blood counts, liver function tests, and bone abnormalities seen on the imaging done in the emergency department. Your platelet counts were low. Avoid any dangerous activities that may cause bleeding. Avoid any aspirin containing products. Since your liver functions were elevated avoid any alcohol or Tylenol containing products. Rest and drink plenty of fluids. Zofran 4 mg oral dissolving tablets: take one tablet and allow it to melt in your mouth every 4 hours as needed for nausea. Return to the ER for headache, nosebleeds, vomiting blood, bloody stools, black stools, passing out, difficulty breathing, fevers, numbness, tingling, worsening of your condition, or as needed. Problem Qualifiers
--- NOTE | 2016-09-23 06:53 | DIAGNOSTIC IMAGING REPORT ---
Pain GALLBLADDER-ABD LIMITED CLINICAL HISTORY: nausea, weight loss, vomiting, elevated LFTs pain TECHNIQUE: Ultrasound COMPARISON STUDY: 07/10/2016 FINDINGS: Unchanged study compared to the prior exam. Normal gallbladder. Common bile duct 4 mm. Fatty infiltration of liver. Several benign hemangiomas unchanged. Pancreas and right kidney unremarkable. IMPRESSION: No acute process. Fatty infiltration of liver. Electronically signed by: Shiraz Marquez M.D. 09/23/2016 6:52 AM Dictated Date/Time: 09/23/2016 6:49 AM
--- NOTE | 2016-09-23 07:02 | DIAGNOSTIC IMAGING REPORT ---
ABDOMEN AND PELVIS CT WITH IV AND ORAL CONTRAST CT DOSE: 313.90 mGy.cm HISTORY: Pain nausea, weight loss, vomiting TECHNIQUE: Multiaxial CT images of the abdomen and pelvis were performed following the use of intravenous and oral contrast. COMPARISON STUDY: None. FINDINGS: Small left pleural effusion. Mild fatty infiltration of liver. Kidneys enhance uniformly. Spleen is unremarkable. Bowel pattern is nonobstructive. Several small nonspecific retroperitoneal as well as lateral pelvic sidewall nodes. Diffuse metastatic change throughout the osseous structures is suggestive of myeloma. IMPRESSION: 1. Diffuse metastatic change throughout all major osseous structures the axial and appendicular skeleton.. 2. Lytic as well as blastic components are present throughout the possibility of multiple myeloma versus diffuse metastatic change felt to be likely. 3. Nonobstructive bowel pattern. 4. Mild fatty infiltration of liver. Electronically signed by: Shiraz Marquez M.D. 09/23/2016 7:00 AM Dictated Date/Time: 09/23/2016 6:54 AM
[2016-10-25] MEDS ORDERED: DXM/4 PO ×2 (14:21)
[2016-10-25] MEDS ORDERED: PROC1TAB5 PO (14:21)
[2016-10-25] MEDS ORDERED: ONDA8TAB6 PO (14:21)
[2016-10-25] MEDS ORDERED: OXYC1TAB3 PO (14:21)
== END 2016-09-23 01:40 | disposition home or self-care (01) ==
LOC: C.EDB 19:50 → C.EDC 09-23 01:40
DX: R11.10 Vomiting, unspecified (principal); R94.5 Abnormal results of liver function studies; D69.6 Thrombocytopenia, unspecified; I10 Essential (primary) hypertension

== ENCOUNTER 2016-10-31 05:14 | Day surgery (SDC) | payer OTHER ==
[2016-10-22 16:15] VITALS: BMI 24.0
[~2016-10-31] VITALS: Ht 170.2 cm; Wt 70.0 kg
[~2016-10-31 05:14] MED LIST changes: +BND25 PO; +DXM/4 PO; +ESCI1TAB6 PO; +HYDR-5688 PO; +HYDR25CA PO; +LAMO25TA PO; -MELO7.5T5 PO; +ONDA8TAB6 PO; +OXYC1TAB3 PO; +PRLSR20 PO; +PROC1TAB5 PO
[2016-10-31 05:43] VITALS: BP 127/73; PULSE 81; TEMP 37.1; O2SAT 94; Ht 170.2 cm; Wt 70.0 kg
[2016-10-31] MEDS ORDERED: CEFAZOLIN 2000 MG/60 ML D5W IV SCH (06:00)
[2016-10-31] MEDS ORDERED: LACTATED RINGER'S 1000ML 1,000 ML IV SCH (06:00)
[2016-10-31] MEDS ORDERED: MIDAZOLAM HCL 1 MG/ML 2ML VIAL ONE (06:47)
[2016-10-31] MEDS ORDERED: PROPOFOL IV EMULSION 10 MG/ML 20 ML VIAL IV ONE ×2 (06:47→07:42)
[2016-10-31] MEDS ORDERED: FENTANYL CITRATE INJ 50 MCG/1 ML 2 ML VIAL ONE (06:47)
[2016-10-31] MEDS ORDERED: BUPIVACAINE 0.5 % 5 MG/1 ML MPF 30ML VIAL ONE (06:52)
[2016-10-31] MEDS ORDERED: LIDOCAINE HCL 1% 20 ML VIAL ONE (06:52)
[2016-10-31] MEDS ORDERED: BACITRACIN OINT 15 GM TUBE ONE (06:54)
--- NOTE | 2016-10-31 07:08 | History & Physical Bridge Note ---
H&P Re-Evaluation Bridge Note: I have examined the patient, reviewed the History & Physical and in the interval since the performance of the History & Physical I have noted the following changes of clinical significance: No changes noted
[2016-10-31] MEDS ORDERED: FENTANYL CITRATE INJ 50 MCG/1 ML 2 ML VIAL IV PRN (07:15)
[2016-10-31] MEDS ORDERED: ONDANSETRON INJ 2 MG/ML 2 ML VIAL IV PRN (07:15)
[2016-10-31] MEDS ORDERED: ATROPINE SULFATE 0.1 MG/ML 5ML SYR IV PRN (07:15)
[2016-10-31] MEDS ORDERED: EpHEDrine SULFATE INJ 50 MG/ML AMP IV PRN (07:15)
[2016-10-31] MEDS ORDERED: PROMETHAZINE HCL INJ 6.25 MG in SODIUM CHLORIDE 0.9% 50ML 50 ML IV PRN (07:15)
[2016-10-31] MEDS ORDERED: KETAMINE HCL INJ 50 MG/ML 10 ML VIAL ONE (07:21)
[2016-10-31] MEDS ORDERED: PHENYLEPHRINE 100MCG/ML 5ML SYR ONE (07:42)
[2016-10-31] MEDS ORDERED: SODIUM CHLORIDE 0.9% INJ 10 ML VIAL ONE (07:42)
[2016-10-31] MEDS ORDERED: KETOROLAC TROMETHAMINE 30 MG/ML VIAL ONE (08:06)
[2016-10-31] MEDS ORDERED: SODIUM CHLORIDE 0.9% 1000ML 1,000 ML IV SCH (08:17)
--- NOTE | 2016-10-31 08:17 | [facility] Post Operative Brief Note ---
Immediate Operative Summary Operative Date Oct 31, 2016. Pre-Operative Diagnosis NEED FOR IV ACCESS Post-Operative Diagnosis SAME PREOP Procedure(s) Performed LEFT INFUSAPORT INSERTION Surgeon DR. OTOOLE Protective Signal Repairer Surgeon(s) DR. EMMANUEL Estimated Blood Loss 10ml Findings patent RIJ Specimens NONE Drains none Anesthesia sedation + local Complication(s) None Disposition Recovery Room / PACU
--- NOTE | 2016-10-31 08:23 | Discharge Instructions ---
Discharge Instructions Date of Service Oct 31, 2016. Visit Reason for Visit: Breast Cancer Discharge Discharge Diagnosis / Problem: S/P port placed Discharge Goals Goal(s): Decrease discomfort, Improve function Activity Recommendations Activity Limitations: per Instructions/Follow-up section Lifting Limitations: none Exercise/Sports Limitations: gradually increase as tolerated May Resume Sexual Activity: when tolerated Shower/Bathe: may shower/bathe in 3 days Driving or Machine Use: resume 3 days after discharge Anesthesia . Post Anesthesia Instructions: If you have had General Anesthesia or IV Sedation: * Do not drive today. * Resume driving when surgeon permits. * Do not make important decisions or sign legal documents today. * Call surgeon for: 1. Temperature elevations greater than 101 degrees F. 2. Uncontrollable pain. 3. Excessive bleeding. 4. Persistent nausea and vomiting. 5. Medication intolerance (nausea, vomiting or rash). * For nausea and vomiting use only clear liquids such as: tea, soda, bouillon until nausea subsides, then gradually increase diet as tolerated. * If you have any concerns or questions, call your surgeon's office. If physician is unavailable and it is an emergency, call 911 or go to the nearest emergency room. . Instructions / Follow-Up Instructions / Follow-Up keep the dressing on for 4 days, she can take a shower on 11/04/2016, take po tylenol 650 mg po q6h prn for pain, no more than 4 days, Follow up me 1 week, Diet Recommendations Recommended Home Diet: resume previous diet Procedures Procedures Performed: LEFT INFUSAPORT INSERTION Pending Studies Studies pending at discharge: no Medical Emergencies . Who to Call and When: Medical Emergencies: If at any time you feel your situation is an emergency, please call 911 immediately. . Non-Emergent Contact Non-Emergency issues call your: Surgeon Call Non-Emergent contact if: you have a fever, temperature is above 100.5, your pain is not controlled, your pain is worsening, wound has increased drainage, wound has increased redness . . "Provider Documentation" section prepared by Jarocho Zheng. . [place] Drug Monitoring Program Search Results: no issues identified
[2016-10-31] MEDS ORDERED: IBUPROFEN 600 MG TAB PO PRN (08:30)
[2016-10-31] MEDS ORDERED: OXYCODONE/ACETAMINOPHEN 5-325 TAB PO PRN (08:30)
[2016-10-31] MEDS ORDERED: MoRPHine SULFATE 2 MG/ML CARP IV PRN (08:30)
--- NOTE | 2016-10-31 08:59 | DIAGNOSTIC IMAGING REPORT ---
CHEST ONE VIEW PORTABLE HISTORY: 56 years-old Female status post port placement with history of breast cancer. COMPARISON: PET CT 10/16/2016, chest radiograph 09/22/2016 TECHNIQUE: Portable upright AP view of the chest FINDINGS: Cardiac silhouette is within normal limits. Small left pleural effusion is redemonstrated with hazy bibasilar opacities. There is been interval placement of a left internal jugular [id number] catheter with distal tip in the region of the mid SVC. No postprocedural pneumothorax is identified. There is mild blunting of the left costophrenic angle is well. Scattered sclerotic bony metastasis are again seen throughout the thorax. IMPRESSION: 1. Status post left internal jugular [id number] catheter placement without postprocedure pneumothorax identified. 2. Small left pleural effusion redemonstrated with possible trace right pleural effusion. 3. Bibasilar opacities suggest atelectasis with pneumonia also in the differential. 4. Multifocal skeletal metastases redemonstrated. The above report was generated using voice recognition software. It may contain grammatical, syntax or spelling errors. Electronically signed by: Hemal Graham M.D. 10/31/2016 8:57 AM Dictated Date/Time: 10/31/2016 8:55 AM
--- NOTE | 2016-10-31 08:59 | Anesthesiology Progress Note ---
Anesthesia Post Op Note Date & Time Oct 31, 2016 at 08:58 Vital Signs Pain Intensity: 0 Vital Signs Past 12 Hours Date Time Temp Pulse Resp B/P (MAP) Pulse Ox O2 Delivery O2 Flow Rate FiO2 10/31/16 08:55 74 16 108/56 97 Nasal Cannula 2 10/31/16 08:45 36.2 69 16 91/58 97 Nasal Cannula 2 10/31/16 08:35 76 16 98/62 97 Nasal Cannula 2 10/31/16 08:25 36.0 81 16 98/69 95 Nasal Cannula 2 10/31/16 05:43 37.1 81 18 127/73 (91) 94 Room Air Notes Mental Status: alert / awake / arousable, participated in evaluation Pt Amnestic to Procedure: Yes Nausea / Vomiting: adequately controlled Pain: adequately controlled Airway Patency, RR, SpO2: stable & adequate BP & HR: stable & adequate Hydration State: stable & adequate Anesthetic Complications: no major complications apparent
[2016-10-31 09:00] VITALS: BP 110/56; PULSE 76; TEMP 36.2; O2SAT 94
--- NOTE | 2016-10-31 09:14 | OPERATIVE REPORT ---
DATE OF OPERATION: 10/31/2016 PREOPERATIVE DIAGNOSIS: Breast cancer, need of port placement for chemo. POSTOPERATIVE DIAGNOSIS: Same. OPERATION: Port placement on the right internal jugular vein. SURGEON: Dr. Jarocho Zheng M.D. ANESTHESIA: Conscious sedation plus local. ESTIMATED BLOOD LOSS: About 10 mL. FINDINGS: Patent right internal trocar vein. COMPLICATIONS: None. INDICATIONS FOR THE PROCEDURE: This is a 56-year-old female who is referred for port placement for chemotherapy based on the patient had breast cancer. I did talk to the patient about the benefit and risk, alternate procedure. I indicated the risks may include but not limited such as bleeding, infection, injury to the lungs, dysfunction catheter, blood clot, even . The patient understands. She signed informed consent and I answered all questions. OPERATION AND FINDINGS: DETAILS OF PROCEDURE: We brought the patient to the OR, put the patient in the supine position. The patient received SCD on bilateral legs to prevent DVT and also the patient received 2 grams Ancef IV for prophylactic antibiotic. The patient received conscious sedation by the anesthesiology. Then we put the patient in the Trendelenburg position. I used ultrasound to locate the left internal jugular vein. We put a serenity on the neck. Then the patient's head and neck and left side upper chest was prepped and draped in routine sterile fashion. After time out, I used 1% lidocaine to infiltrate on the left side of the neck. Then I made a 0.5 cm incision on the neck and then I used ultrasound to locate the left internal jugular vein and used a 16 gauge needle puncture the left internal jugular vein. First time get easily blood return, then I passed the wire through the needle, removed the needle. Then I used fluoro to confirm the wire located in the SVC superior vena cava, then I injected the local anesthesia by using 1% on the left side upper chest and made about a 3 cm incision on the left side chest to create the pouch for the port. Hemostasis was obtained. Then I used the dilator catheter passed the [id number] through the 2 incisions. Then I used a sheath to pass the wire and used fluoro again locate the sheath and located SVC. I removed the wire and then passed the catheter through the sheath, then we removed the sheath. I used fluoroscopy again, the tip of the catheter located junction between the superior vena cava and right atrium. Then I sized the catheter, connected to the port to the catheter and then I used 2-0 Prolene to fix the port on the chest wall at 3 points. Hemostasis obtained. Then I closed subcutaneous layer by using 2-0 Vicryl continuous running, closed skin by using 4-0 Vicryl continuous running. Then I used a straight needle puncture the port, easily blood returned and then I injection heparin with the saline. All the instrument, needle and sponge count correct x2 at the end of the case. The patient tolerated the procedure well. The patient transferred to recovery room in stable condition. After the procedure, I did talk to the patient and patient's family member about the OR finding and procedure we did, they understand. I will follow up the patient in 1 week. I attest to the content of the Intraoperative Record and any orders documented therein. Any exceptions are noted below. CYRILD
[2016-10-31 09:30] VITALS: BP 136/62; PULSE 68; TEMP 36.5; O2SAT 98
[2016-11-01] MEDS ORDERED: CEFAZOLIN IV 2,000 MG/60 ML D5W IV ONE (06:00)
== END 2016-10-31 09:43 | disposition home or self-care (01) ==
LOC: C.ACU 05:14
PROVIDERS: ATTEND Surgery
DX: C79.51 Secondary malignant neoplasm of bone (principal); I10 Essential (primary) hypertension; F31.30 Bipolar disorder, current episode depressed, mild or moderate severity, unspecified; E66.9 Obesity, unspecified; E78.5 Hyperlipidemia, unspecified; D69.6 Thrombocytopenia, unspecified; Z85.3 Personal history of malignant neoplasm of breast; Z90.11 Acquired absence of right breast and nipple; Z79.899 Other long term (current) drug therapy

== ENCOUNTER → 2016-11-27 | Outpatient (CLI) | payer OTHER ==
[~2016-11-27] MED LIST changes: -HYDR25CA PO
[2016-11-27 08:20] VITALS: BP 126/82; PULSE 85; TEMP 36.6; O2SAT 96
--- NOTE | 2016-11-27 09:23 | Radiation Oncology Follow-Up ---
Radiation Oncology Follow-Up Date of Visit Nov 27, 2016. 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 Nguyen is a 56-year-old female with a history of bipolar disease who had a history of breast cancer initially diagnosed in 2006. The patient did quite well with standard of care therapy until recently when she presented with nausea , vomiting and weakness issues. The patient did have a complete workup in September 2016 (as above) that revealed widespread metastatic breast cancer that was biopsy-proven with bone marrow biopsy. The patient did have a PET/CT scan on which revealed widespread metastatic disease involving the bones, cervical/axillary/mediastinal/hilar/retroperitoneal lymph nodes, liver. Several days ago, the patient did present with nausea and did undergo an MRI of the brain with and without contrast on 10/23/2016 which revealed multifocal calvarial and dural-based enhancing lesions consistent with metastatic disease, few potentially small enhancing lesions in the brain and potential involvement of the right medial rectus muscle. Dr. Juliann Vicente from medical oncology has initiated Decadron 4 mg 3 times a day. We have been asked to evaluate the patient for consideration of radiation therapy. Interim History Patient has now started systemic chemotherapy. She is tolerating this well. She does have associated fatigue. She denies any nausea or vomiting. She has occasional loose bowel movements. For this she uses Imodium. She had lost 4 pounds and then gained 2. She feels her weight is now stable. She denies any headaches. There is been no change in vision. There is been no change in strength of the upper or lower extremities. She does have some left shoulder pain. She stated that with taking her pretreatment steroids the shoulder improves. Her chemotherapy as every 10 days. She stated she'll be having chemotherapy over the next 6 months. Allergies Coded Allergies: Latex1 -Allergic Contact Dermititis (Verified Allergy, Unknown, BURNING, DERMATITIS, 10/31/16) Home Medications Scheduled Aripiprazole (Abilify), 10 MG PO HS Dexamethasone (Decadron), 12 TAB PO DAILY Escitalopram Oxalate (Lexapro), 5 MG PO HS Lamotrigine (Lamictal), 50 MG PO QAM Omeprazole (Prilosec), 20 MG PO QAM Scheduled PRN Diphenhydramine Hcl (Benadryl), 25 MG PO HS PRN for PRN Hydrocodone/Acetaminophen 5MG/325MG ([place] 5MG/325MG), 1 TAB PO TID PRN for Pain Ondansetron Hcl (Zofran), 8 MG PO TID PRN for Nausea Oxycodone Ir (Roxicodone Ir), 5 MG PO Q4H PRN for Severe Pain Prochlorperazine Maleate (Compazine), 10 MG PO Q6H PRN for Nausea or Vomiting Review of Systems Gastrointestinal: Symptoms: Diarrhea GI Comments: takes immodium as needed, eating a lot of fruit that causes diarrhea Oral: Symptoms: No Problems Respiratory: Symptoms: WNL Urinary: Symptoms: Nocturia Comments: nocturia times 2- 3 Skin: Symptoms: No Problems Breast: Right Upper Arm Measurement: 28.0 Right Mid Arm Measurement: 21.5 Right Wrist Measurement: 15.1 Left Upper Arm Measurement: 29.5 Left Mid Arm Measurement: 23.5 Left Wrist Measurement: 15.6 Arm Dominence: Right Physical Exam Vital Signs Date Time Temp Pulse Resp B/P (MAP) Pulse Ox O2 Delivery O2 Flow Rate FiO2 11/27/16 08:20 36.6 85 16 126/82 96 Pain: Side: Bilateral Patient Pain Scale: 0 - 10 Initial Pain Intensity: 0.0 Fatigue: Mild General Appearance: no apparent distress Eyes: normal inspection, PERRL, EOMI ENT: normal ENT inspection, hearing grossly normal Neck: no adenopathy, thyroid normal Respiratory/Chest: lungs clear, no respiratory distress, no accessory muscle use Cardiovascular: regular rate, rhythm, no gallop, no murmur Extremities: no pedal edema 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, no motor/sensory deficits, alert Skin: warm/dry Laboratory Studies Test 09/22/16 20:15 White Blood Count 8.47 K/uL (4.8-10.8) Red Blood Count 3.76 M/uL (4.2-5.4) Hemoglobin 11.4 g/dL (12.0-16.0) Hematocrit 34.8 % (37-47) Mean Corpuscular Volume 92.6 fL (80-100) Mean Corpuscular Hemoglobin 30.3 pg (25-34) Mean Corpuscular Hemoglobin Concent 32.8 g/dl (32-36) Platelet Count 65 K/uL (130-400) Mean Platelet Volume 9.1 fL (7.4-10.4) RDW Standard Deviation 62.1 fL (36.4-46.3) RDW Coefficient of Variation 18.6 % (11.5-14.5) Nucleated RBC Absolute Count (auto) 2.13 K/uL (0-0) Neutrophils % (Manual) 49.6 % Lymphocytes % (Manual) 25.7 % Monocytes % (Manual) 12.4 % Eosinophils % (Manual) 0.9 % Basophils % (Manual) 3.5 % Metamyelocytes % 4.4 % Myelocytes % 3.5 % Nucleated Red Blood Cells % 25.2 % Neutrophils # (Manual) 4.20 K/uL (1.4-6.5) Total Absolute Neutrophils 4.20 K/uL (1.4-6.5) Lymphocytes # (Manual) 2.18 K/uL (1.2-3.4) Total Absolute Lymphocytes 2.18 K/uL (1.2-3.4) Monocytes # (Manual) 1.05 K/uL (0.11-0.59) Eosinophils # (Manual) 0.08 K/uL (0-0.5) Basophils # (Manual) 0.30 K/uL (0-0.2) Metamyelocytes # 0.37 K/uL (0-0) Myelocytes # 0.30 K/uL (0-0) Platelet Estimate DECREASED Polychromasia 2+ Anisocytosis PRESENT Urine Color YELLOW Urine Appearance CLEAR (CLEAR) Urine pH 5.5 (4.5-7.5) Urine Specific [place] 1.012 (1.000-1.030) Urine Protein NEG (NEG) Urine Glucose (UA) NEG (NEG) Urine Ketones NEG (NEG) Urine Occult Blood NEG (NEG) Urine Nitrite NEG (NEG) Urine Bilirubin NEG (NEG) Urine Urobilinogen NEG (NEG) Urine Leukocyte Esterase NEG (NEG) Sodium Level 135 mmol/L (136-145) Potassium Level 3.7 mmol/L (3.5-5.1) Chloride Level 100 mmol/L (98-107) Carbon Dioxide Level 23 mmol/L (21-32) Anion Gap 12.0 mmol/L (3-11) Blood Urea Nitrogen 8 mg/dl (7-18) Creatinine 0.84 mg/dl (0.60-1.20) Est Creatinine Clear Calc Drug Dose 71.0 ml/min Estimated GFR () 88.8 Estimated GFR (Non- 76.6 BUN/Creatinine Ratio 9.3 (10-20) Random Glucose 99 mg/dl (70-99) Calcium Level 10.2 mg/dl (8.5-10.1) Magnesium Level 1.9 mg/dl (1.8-2.4) Total Bilirubin 1.3 mg/dl (0.2-1) Direct Bilirubin 0.5 mg/dl (0-0.2) Aspartate Amino Transferase (AST) 218 U/L (15-37) Alanine Aminotransferase (ALT) 96 U/L (12-78) Alkaline Phosphatase 480 U/L (45-117) Total Creatine Kinase 63 U/L (26-192) Creatine Kinase MB < 0.5 ng/ml (0.5-3.6) Creatine Kinase MB Ratio (0-3.0) Troponin I < 0.015 ng/ml (0-0.045) Total Protein 7.1 gm/dl (6.4-8.2) Albumin 3.2 gm/dl (3.4-5.0) Lipase 217 U/L (73-393) Thyroid Stimulating Hormone (TSH) 6.460 uIu/ml (0.300-4.500) Assessment & Plan (Attending) Ms. Nguyen is a 56-year-old female with metastatic breast cancer with history as stated above. We previously saw her in consultation to discuss the role of palliative radiation therapy for dural based metastatic disease involving the calvarium. At the time, the patient was asymptomatic and we recommended no radiation therapy and to continue with chemotherapy underneath the supervision of Dr. Jeffrey Lam. She has returned for follow-up evaluation to assess or neurologic symptoms and complaints. She remains asymptomatic at this point. I' ve recommended no radiation therapy given she has no symptoms. I have encouraged patient to call me if she feels developing any symptoms related to calvarial metastases including but not limited to headaches nausea, vomiting and neurologic symptoms. I have spoken with Dr. Jeffrey Lam from medical oncology who agrees with this management plan. The patient will follow with us as needed. She will continue to follow and get treatment underneath the care of Dr. Jeffrey Lam from medical oncology. She was encouraged to call me if she has any questions or concerns would like to be seen again. Total Time In Follow-Up I spent 20 minutes speaking to the patient and performing examination. I spent 15 minutes reviewing information in completing this note. [place] Total Time (Attending) In Follow-Up I spent 15 minutes examining and counseling the patient. I spent 10 minutes completing this note. COACH DRIVER Copy To Lyndsay Geiger D.O.; Jeffrey aLm M.D.
== END | disposition home or self-care (01) ==
LOC: C.ONC 08:12
PROVIDERS: ATTEND Physician Assistant Medical
DX: Z08 Encounter for follow-up examination after completed treatment for malignant neoplasm (principal); Z92.3 Personal history of irradiation; Z85.3 Personal history of malignant neoplasm of breast

== ENCOUNTER → 2017-07-24 | Outpatient (CLI) | payer OTHER ==
[~2017-07-24] MED LIST changes: -BND25 PO; +CALC500C70 PO; +CHOL1000 PO; +KPH250 PO; +ONDA-170 PO; -ONDA8TAB6 PO; +POTA10CA28 PO; -PRLSR20 PO; +PROC10TA PO; -PROC1TAB5 PO; +calcium PO
[2017-07-24 14:01] VITALS: BP 115/76; PULSE 84; TEMP 36.9; O2SAT 97
--- NOTE | 2017-07-24 16:22 | Radiation Oncology Follow-Up ---
Radiation Oncology Follow-Up Date of Visit July 24, 2017. 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 Small intraparenchymal lesions suspicious for metastasis. Status post MRI May 07, 2017. Multiple enhancing lesions bilateral cerebral hemispheres and left cerebellum consistent with metastasis. Bone metastasis again noted. Undergoing systemic chemotherapy Status post SBRT therapy to the brain completed June 20, 2017. She received 2750 cGy. Last Edited By: Karly Rodrigues on Jun 30, 2017 12:51 History of Present Illness Ms. Nguyen is a 56-year-old female with a history of bipolar disease who had a history of breast cancer initially diagnosed in 2006. The patient did quite well with standard of care therapy until recently when she presented with nausea, vomiting and weakness issues. The patient did have a complete workup in September 2016 (as above) that revealed widespread metastatic breast cancer that was biopsy-proven with bone marrow biopsy. The patient did have a PET/CT scan on 2016 which revealed widespread metastatic disease involving the bones, cervical/ axillary/mediastinal/hilar/retroperitoneal lymph nodes, liver. Several days ago, the patient did present with nausea and did undergo an MRI of the brain with and without contrast on 10/23/2016 which revealed multifocal calvarial and dural- based enhancing lesions consistent with metastatic disease, few potentially small enhancing lesions in the brain and potential involvement of the right medial rectus muscle. Dr. Juliann Vicente from medical oncology has initiated Decadron 4 mg 3 times a day. We have been asked to evaluate the patient for consideration of radiation therapy. Patient has been receiving systemic chemotherapy. She is tolerating this well. She does have associated fatigue. She denies any nausea or vomiting. She has occasional loose bowel movements. She feels her weight is now stable. She denies any headaches. There is been no change in vision. There is been no change in strength of the upper or lower extremities. She does have some left shoulder pain. She stated that with taking her pretreatment steroids the shoulder improves. Her chemotherapy as every 10 days. She stated she'll be having chemotherapy over the next 6 months. She continues on systemic chemotherapy. She has had restaging studies including MRI of the brain as well as a PET/CT. The most recent MRI has shown multiple small enhancing lesions in the bilateral cerebral hemispheres and left cerebellum consistent with metastatic disease. Some of these are new and some are larger. Multiple bony metastasis are again seen. She also had a PET CT May 15, 2017. This showed no evidence of metabolically active malignancy. Diffuse mottled and sclerotic appearance of the osseous structures. Previously noted heterogeneous marrow uptake is improved from prior. No focal suspicious osseous uptake. Stable hypermetabolic left thyroid nodule. Due to the changes of the MRI she was referred to our office to discuss radiation therapy. She has had no issues with headaches, dizziness, or change of vision. She has noted no change in the strength of her arms or legs. She underwent radiation therapy the brain. She received SBRT completed May. She received 2750 cGy. Interim History She has done well over the past month in regards to treatment other than she has fatigue. She has had hair loss along the left side of the head. She did not have any skin irritation or breakdown. There is no peeling of the skin. She denies any difficulty with ear discomfort. She denies headaches. She has had no change in vision. No problems with dizziness. She continues on chemotherapy and medical oncology. She has a feeling of numbness on the left side of face near the corner of her mouth. That has been since the initial onset of diagnosis. She has tingling of the fingers and toes which is related to her chemotherapy. Allergies Coded Allergies: Latex1 -Allergic Contact Dermititis (Verified Allergy, Unknown, BURNING, DERMATITIS, 10/31/16) Home Medications Scheduled Aripiprazole (Abilify), 10 MG PO HS Calcium/Vitamin D ([place] 500 Plus D), 2 TAB PO DAILY Cholecalciferol (Vitamin D3), 1 TAB PO DAILY Dexamethasone (Decadron), 8 TAB PO DAILY Escitalopram Oxalate (Lexapro), 5 MG PO HS Lamotrigine (Lamictal), 50 MG PO QAM Phosphorus (K-Phos Neutral), 1 TAB PO BID Scheduled PRN Hydrocodone/Acetaminophen 5MG/325MG ([place] 5MG/325MG), 1 TAB PO TID PRN for Pain Ondansetron Hcl (Zofran), 8 MG PO TID PRN for Nausea Oxycodone Ir (Roxicodone Ir), 5 MG PO Q4H PRN for Severe Pain Prochlorperazine Maleate (Compazine), 10 MG PO Q6H PRN for Nausea or Vomiting Review of Systems Gastrointestinal: Symptoms: Constipation, Diarrhea GI Comments: Episodes of diarrhea/constipation assoc. w/chemo - manageable; Oral: Symptoms: No Problems Respiratory: Symptoms: WNL Urinary: Symptoms: WNL Skin: Symptoms: No Problems Other Skin Symptoms: Hair loss on left side of head over past week; Additional Notes: She completed a distress management report and answered "no" to all questions. Physical Exam Vital Signs Date Time Temp Pulse Resp B/P (MAP) Pulse Ox O2 Delivery O2 Flow Rate FiO2 07/24/17 14:01 36.9 84 24 115/76 97 ECOG Performance Status: 0 General Appearance: no apparent distress, + pertinent finding (Alopecia on the left side of the head frontal temporal area) Eyes: normal inspection, PERRL, EOMI ENT: normal ENT inspection, hearing grossly normal Neck: no adenopathy, thyroid normal Respiratory/Chest: lungs clear, no respiratory distress, no accessory muscle use Cardiovascular: regular rate, rhythm, no gallop, no murmur Abdomen: non tender, soft, no organomegaly Extremities: no pedal edema 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 Laboratory Laboratory Results: not applicable Pathology Pathology Results: were reviewed, and pertinent findings noted in HPI Imaging Imaging Studies: were reviewed, and pertinent findings noted in HPI Assessment & Plan Plan: She will continue regular follow-up with her primary care provider and medical oncology. She is scheduled for recheck PET CT and echocardiogram July. She is also scheduled for a brain MRI on that day. Will await these final results. This will be reviewed with Dr. Lam. Recommendation will be given for follow-up imaging in the future. If everything is improved and stable a recheck MRI will likely be recommended for 3 months. We discussed the fatigue. We reviewed that radiation therapy to the area of the brain does cause fatigue. We discussed the hair loss this may be partial or complete. After the review of her MRI she will be called and given a follow-up appointment. Total Time In Follow-Up I spent 20 minutes speaking to the patient in performing examination. I spent 15 minutes reviewing information and completing this note. Copy To Kristel Yañez D.O.; Jeffrey Lam M.D.
== END | disposition home or self-care (01) ==
LOC: C.ONC 13:48
PROVIDERS: ATTEND Physician Assistant Medical
DX: Z08 Encounter for follow-up examination after completed treatment for malignant neoplasm (principal); Z92.3 Personal history of irradiation; Z85.3 Personal history of malignant neoplasm of breast

== ENCOUNTER 2021-01-09 17:41 | Inpatient (IN) ==
[2021-01-09] MEDS ORDERED: ONDANSETRON INJ 2 MG/ML 2 ML VIAL IV STA ×2 (18:30→21:03)
[2021-01-09 18:39] LABS: Basophils # (auto) 0.02 K/uL (0-0.2); Basophils % (auto) 0.3 %; Eosinophils # (auto) 0.03 K/uL (0-0.5); Eosinophils % (auto) 0.4 %; Hematocrit (blood only) 39.7 % (37-47); Hemoglobin 13.4 g/dL (12.0-16.0); Immature Granulocytes # (auto) 0.01 K/uL (0.00-0.02); Immature Granulocytes % (auto) 0.1 %; Lymphocytes % (auto) 10.4 %; Mean Corpuscular Hemoglobin 30.3 pg (25-34); Mean Corpuscular Hgb Conc 33.8 g/dL (32-36); Mean Corpuscular Volume 89.8 fL (80-100); Mean Platelet Volume 8.7 fL (7.4-10.4); Monocytes # (auto) 0.51 K/uL (0.11-0.59); Monocytes % (auto) 7.6 %; Neutrophils # (auto) 5.45 K/uL (1.4-6.5); Neutrophils % (auto) 81.2 %; Platelet Count 258 K/uL (130-400); RDW Standard Deviation 46.1 fL (36.4-46.3); Red Blood Count 4.42 M/uL (4.2-5.4); White Blood Count 6.72 K/uL (4.8-10.8)
[2021-01-09 19:04] LABS: Alanine Aminotransferase 299 U/L (12-78); Albumin Level 3.8 gm/dl (3.4-5.0); Aspartate Aminotransferase 392 U/L (15-37); BUN Creatinine Ratio 8.7 (10-20); Blood Urea Nitrogen 9 mg/dl (7-18); Calcium 8.7 mg/dl (8.5-10.1); Carbon Dioxide 20 mmol/L (21-32); Chloride 109 mmol/L (98-107); Est GFR (African American) 69.1 ml/min; Est GFR (Non-African American) 59.6 ml/min; Glucose 144 mg/dl (70-99); Potassium 4.2 mmol/L (3.5-5.1); Sodium 137 mmol/L (136-145)
[2021-01-09 19:07] LABS: Albumin Globulin Ratio 1.1 (0.9-2); Alkaline Phosphatase 293 U/L (45-117); Bilirubin,Total 1.1 mg/dl (0.2-1); Globulin 3.4 gm/dl (2.5-4.0); Lipase 2037 U/L (73-393); Total Protein 7.2 gm/dl (6.4-8.2)
[2021-01-09] MEDS ORDERED: SODIUM CHLORIDE 0.9% 1000ML 1,000 ML IV ONE (21:03)
[2021-01-09] MEDS ORDERED: MoRPHine SULFATE 4 MG/ML 1 ML CARP\\VIAL IV STA (21:03)
--- NOTE | 2021-01-09 22:01 | History & Physical Report ---
Date of Service January 09, 2021 Assessment & Plan (1) Pancreatitis: (2) Transaminitis: (3) Metastatic breast cancer: (4) HTN (hypertension): (5) Mood disorder: Plan: This is a 60yo F with a PMH of metastatic breast cancer, hypertension, mood disorder and other medical problems listed below who presents with abdominal pain that began yesterday and was found to have pancreatitis and transaminitis. PCP: Fely Patient seen in collaboration with Dr. Gordon. Please see addendum for plan details. History of Present Illness Chief Complaint: abdominal pain Primary Care Provider: Kristel Yañez, This is a 60yo F with a PMH of metastatic breast cancer (s/p R mastectomy on herceptin Q3 weeks, anastrozole daily, s/p XRT to brain), hypertension, mood disorder and other medical problems listed below who presents with abdominal pain that began yesterday. Pain started right under rib cage and is described as sharp and constant. Has since radiated lower and epigastrium as well as over to right upper quadrant. Pain is worse with movement. Took an oxycodone last night with some relief. Pain is associated with decreased appetite, nausea and dry heaves. + Recent constipation. Denies any alcohol use in the past month. No history of pancreatitis. Non-smoker. Still has gallbladder. No fever, chills, lightheadedness, headache, chest pain, shortness of breath, dysuria or diarrhea. In ED, patient is hemodynamically stable. No leukocytosis, electrolytes wnl, tbili 1.1, AST 392, ALT 299, alk phos 293, lipase 2,037. Covid PCR pending. RUQ imaging pending. Allergies Allergy/AdvReac Type Severity Reaction Status Date / Time latex Allergy Unknown BURNING,FLEX Verified 01/09/21 22:04 MATITIS Home Medications Medication Instructions Recorded Confirmed Type anastrozole 1 mg tablet 1 mg PO QAM 04/01/19 01/09/21 History aripiprazole 10 mg tablet 10 mg PO HS 04/01/19 01/09/21 History escitalopram oxalate 5 mg tablet 5 mg PO QAM 04/01/19 01/09/21 History lamotrigine 25 mg tablet 50 mg PO DAILY 04/01/19 01/09/21 History ondansetron HCl 8 mg tablet 8 mg PO TID PRN 04/01/19 01/09/21 History sodium di- and 1 tab PO BID 04/01/19 01/09/21 History monophosphate-potassium phos monobasic 250 mg tablet (Phospha 250 Neutral) bismuth subsalicylate 262 mg/15 mL 524 mg PO QID PRN 01/09/21 01/09/21 History oral suspension (Pepto-Bismol) oxycodone 5 mg tablet (Roxicodone) 5 mg PO Q8H PRN 01/09/21 01/09/21 History pyridoxine (vitamin B6) 250 mg 250 mg PO QAM 01/09/21 01/09/21 History tablet (Vitamin B-6) vitamin E 400 unit capsule 400 unit PO QAM 01/09/21 01/09/21 History Past Med/Surg History Medical History Breast CA Dehydration Elevated LFTs HTN (hypertension) Kidney stone Metastatic breast cancer (06/12/06) Status post stereotactic biopsy right breast 06/12/2006 DCIS Status post simple simple mastectomy with reconstruction and sentinel lymph node biopsy 09/15/2016 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 Estrogen receptor positive, progesterone receptor negative, HER-2/tomas positive Nausea, vomiting, weight loss, feeling of off balance and leg weakness CT 09/22/2016 revealing multiple lytic and blastic bone lesions Status post bone marrow biopsy 10/02/2016 revealing metastatic breast cancer Estrogen receptor positive, progesterone receptor positive, and HER-2/tomas positive Status post brain MRI 10/23/2016 Multifocal calvarial and dural based enhancing lesions consistent with metastatic disease A few small enhancing intraparenchymal lesions suspicious for metastatic disease" Status post MRI May 07, 2017. Multiple enhancing lesions bilateral cerebral hemispheres and left cerebellum consistent with metastatic discussed. Systemic chemotherapy Status post SBRT therapy to the brain completed June 20, 2017. She received 2750 cGy. Status post MRI December 17, 2017 revealing multiple enhancing foci both cerebral hemispheres. Status post completion of whole brain radiation therapy 01/21/2018. She received 3750 cGy. Mood disorder Nausea vomiting and diarrhea Nausea, vomiting and diarrhea Thrombocytopenia Vomiting Surgical History H/O mastectomy Family History Other Cancer Social History Smoking Status: Never smoker Hx Alcohol Use: Yes Alcohol type: beer Alcohol Intake Frequency: Monthly or Less Hx Substance Use: No Preferred Language: Brazilian Reserve Operator Required: No Beliefs That Will Affect Care: None Current Living Situation: Family Other Information That Helps Us Care for You: No Feels Safe at Home: Yes Safety Concerns: Feels Safe At This Time Assistive Devices: Glasses Review of Systems Review of Systems: At least ten systems reviewed and negative except as noted in the HPI. Physical Exam Physical Exam: General Appearance: WD/WN, vitals as above, NAD, sitting up in bed, appears uncomfortable, conversing without issue Head: normocephalic, atraumatic Eyes: normal inspection, PERRL, conjunctivae normal, anicteric sclerae ENT: external ear and nose normal, oropharynx normal Neck: normal visual inspection, trachea midline, no thyromegaly Respiratory: normal respiratory effort, lungs clear to auscultation, no wheeze, rales, rhonchi. No accessory muscle use Cardiovascular: regular rate, rhythm, no murmur, normal peripheral pulses, no BLE edema. Vessels: no JVD Chest: normal inspection of chest Abdomen/GI: normal bowel sounds, soft, TTP in epigastrium and RUQ. + Lechuga's sign. No hepatosplenomegaly Extremities/Musculoskeletal: no cyanosis or clubbing, extremities motor strength 5/5 Neurologic: PERRL, EOMI, accommodation nl, no face palsy, no dysarthria, CN's II-XI intact bilaterally and moves all extremities Psychiatric: A+Ox3, euthymic affect Skin: no rashes, normal color, warm/dry Results & Data Results & Data ([facility]) Vital Signs (Past 12 Hours) Vital Signs Temp Pulse Pulse Resp BP BP Pulse Ox 01/09/21 21:18 57 L 17 146/89 H 100 01/09/21 17:49 36.7 C 71 20 95/68 L 97 Laboratory Results Short CBC 01/09/21 Range/Units 18:30 WBC 6.72 (4.8-10.8) K/uL Hgb 13.4 (12.0-16.0) g/dL Hct 39.7 (37-47) % Plt Count 258 (130-400) K/uL BMP 01/09/21 18:30 Sodium 137 Potassium 4.2 Chloride 109 H Carbon Dioxide 20 L BUN 9 Creatinine 1.01 Glucose 144 H Calcium 8.7 Liver Function 01/09/21 Range/Units 18:30 Total Bilirubin 1.1 H (0.2-1) mg/dl AST 392 H (15-37) U/L ALT 299 H (12-78) U/L Alkaline Phosphatase 293 H (45-117) U/L Albumin 3.8 (3.4-5.0) gm/dl Supervising Physician Co-Signing Physician Notes IM ATTENDING : Patient seen and examined. History obtained from patient and records. Preceding documentation by Ms. Libia Barboza PA-C reviewed. In addition: Gallbladder ultrasound initial read : Distended gallbladder with cholelithiasis. No wall thickening, but there is trace pericholecystic fluid. Could not assess for Murphysign due to analgesia. Extrahepatic biliarydilation with CBD measuring 8-9 mm. No visualized intraductal stone. 1.8 cmupper pole right renal cyst. No hydronephrosis FINAL ASSESSMENT AND PLAN as follows : Acute biliary pancreatitis Rule out choledocholithiasis Hypertension, BP slight elevated, patient not on maintenance medications Mood disorder at baseline Metastatic breast cancer status post surgery/reconstruction, chemoradiation on hormonal Rx, patient follows with [facility] IVF, bowel rest MRCP GI consult Re: Biliary pancreatitis Further management as per GI. DVT prophylaxis. SCDs Re: Brain mets Full code Text document was generated using [employer] voice recognition software. It may contain grammatical or spelling errors. Kindly contact undersigned for clarification of any documentation item in question.
[2021-01-09] MEDS ORDERED: LACTATED RINGER'S 1,000 ML IV STA (22:19)
[2021-01-09] MEDS ORDERED: oxyCODONE HCL IR 5 MG TAB (IMMEDIATE RELEASE) PO PRN (22:50)
[2021-01-09] MEDS ORDERED: MoRPHine SULFATE 4 MG/ML 1 ML CARP\\VIAL IV PRN (22:50)
[2021-01-09] MEDS ORDERED: ACETAMINOPHEN 325 MG TAB PO PRN (22:50)
[2021-01-09] MEDS ORDERED: PROMETHAZINE HCL 12.5 MG in SODIUM CHLORIDE 0.9% 50 ML IV PRN (22:50)
[2021-01-09 23:04] LABS: Magnesium 2.3 mg/dl (1.8-2.4)
[2021-01-09 23:07] LABS: Prothrombin Time 10.5 Seconds (9.0-12.0)
[2021-01-09 23:15] LABS: Appearance Urine Clear (Clear); Bacteria Urine Automated Negative (Negative); Bilirubin Urine Negative (Negative); Blood Urine Negative (Negative); Color Urine Yellow; Glucose Urine UA Negative (Negative); Ketones Urine Negative (Negative); Leukocyte Esterase Urine Trace (Negative); Nitrite Urine Negative (Negative); Protein Urine Negative (Negative); RBC Urine Automated 0-4 /hpf (0-4); Specific Gravity Urine 1.003 (1.000-1.030); Urobilinogen Urine Negative (Negative); pH Urine 5.5 (4.5-7.5)
[2021-01-10] MEDS ORDERED: LORazepam 0.5 MG/1 ML VIAL IV PRN (00:23)
--- NOTE | 2021-01-10 01:06 | Emergency Department Note ---
History of Present Illness General Chief Complaint: Abdominal Pain Stated Complaint: ABDOMINAL PAIN ON RIGHT SIDE Time Seen by Provider: 01/09/21 21:01 History of Present Illness Provider Complaint: abdominal pain Onset (ago): 2 day(s) Pain Consistency: constant Location: diffuse Severity: severe Maximum Pain Intensity: 10 Current Pain Intensity: 9 Quality: + stabbing, + aching, + sharp and + dull Relieved By: + nothing Exacerbated By: + nothing Context: no foreign travel, no possible food poisoning, no sick contacts, no recent antibiotic use, no recent surgery/procedure or no recent injury Associated Symptoms: + nausea; no vomiting, no diarrhea, no fever, no chills, no constipation, no dysuria, no hematemesis, no hematochezia, no melena, no hematuria, no anorexia, no syncope, no headache, no neck pain, no back pain, no chest pain, no weakness, no breathing difficulty and no numbness Home Medications Medication Instructions Recorded Confirmed Type anastrozole 1 mg tablet 1 mg PO QAM 04/01/19 01/09/21 History aripiprazole 10 mg tablet 10 mg PO HS 04/01/19 01/09/21 History escitalopram oxalate 5 mg tablet 5 mg PO QAM 04/01/19 01/09/21 History lamotrigine 25 mg tablet 50 mg PO DAILY 04/01/19 01/09/21 History ondansetron HCl 8 mg tablet 8 mg PO TID PRN 04/01/19 01/09/21 History sodium di- and 1 tab PO BID 04/01/19 01/09/21 History monophosphate-potassium phos monobasic 250 mg tablet (Phospha 250 Neutral) bismuth subsalicylate 262 mg/15 mL 524 mg PO QID PRN 01/09/21 01/09/21 History oral suspension (Pepto-Bismol) oxycodone 5 mg tablet (Roxicodone) 5 mg PO Q8H PRN 01/09/21 01/09/21 History pyridoxine (vitamin B6) 250 mg 250 mg PO QAM 01/09/21 01/09/21 History tablet (Vitamin B-6) vitamin E 400 unit capsule 400 unit PO QAM 01/09/21 01/09/21 History Allergies Allergy/AdvReac Type Severity Reaction Status Date / Time latex Allergy Unknown BURNING,FLEX Verified 01/09/21 22:04 MATITIS Past Med/Surg History Medical History Breast CA Dehydration Elevated LFTs HTN (hypertension) Kidney stone Metastatic breast cancer (06/12/06) Status post stereotactic biopsy right breast 06/12/2006 DCIS Status post simple simple mastectomy with reconstruction and sentinel lymph node biopsy 09/15/2016 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 Estrogen receptor positive, progesterone receptor negative, HER-2/tomas positive Nausea, vomiting, weight loss, feeling of off balance and leg weakness CT 09/22/2016 revealing multiple lytic and blastic bone lesions Status post bone marrow biopsy 10/02/2016 revealing metastatic breast cancer Estrogen receptor positive, progesterone receptor positive, and HER-2/tmoas positive Status post brain MRI 10/23/2016 Multifocal calvarial and dural based enhancing lesions consistent with metastatic disease A few small enhancing intraparenchymal lesions suspicious for metastatic disease" Status post MRI May 07, 2017. Multiple enhancing lesions bilateral cerebral hemispheres and left cerebellum consistent with metastatic discussed. Systemic chemotherapy Status post SBRT therapy to the brain completed June 20, 2017. She received 2750 cGy. Status post MRI December 17, 2017 revealing multiple enhancing foci both cerebral hemispheres. Status post completion of whole brain radiation therapy 01/21/2018. She received 3750 cGy. Mood disorder Nausea vomiting and diarrhea Nausea, vomiting and diarrhea Thrombocytopenia Vomiting Surgical History H/O mastectomy Family History Other Cancer Social History Smoking Status: Never smoker Hx Alcohol Use: Yes Alcohol type: beer Alcohol Intake Frequency: Monthly or Less Hx Substance Use: No Preferred Language: Ugandan Money Examiner Required: No Beliefs That Will Affect Care: None Current Living Situation: Family Other Information That Helps Us Care for You: No Feels Safe at Home: Yes Safety Concerns: Feels Safe At This Time Assistive Devices: Glasses Review of Systems A total of 10 systems reviewed and were otherwise negative Physical Exam Vital Signs: Vital Signs - 24 hr 01/09/21 17:49 01/09/21 21:18 01/09/21 22:12 Temperature 36.7 C Temperature Source Temporal Artery Sc an Pulse Rate 71 Pulse Rate [Apical ] 57 L 56 L Pulse Rhythm [Apic al] Regular Regular Respiratory Rate 20 17 19 Respiratory Effort / Characteristics Non-Labored Sponta neous Non-Labored Sponta neous Non-Labored Sponta neous Respiratory Depth Normal Normal Normal Respiratory Patter n Regular Regular Regular Blood Pressure 95/68 L Blood Pressure [Le ft Arm] 146/89 H 134/72 Blood Pressure Blanca n 77 Blood Pressure Blanca n [Left Arm] 108 92 Blood Pressure Pos ition Sitting Blood Pressure Pos ition [Left Arm] Lying Lying Pulse Oximetry 97 100 99 Oxygen Delivery Me thod Room Air Room Air Room Air Sepsis Recent Feve r Within 48 Hours No Sepsis New/Unexpla ined Change in Men yudith Status N/A Sepsis Action Take n by Nursing No Action Required Physical Exam: Physical Exam GENERAL: She is oriented to person, place, and time. She appears well-developed and well-nourished. She does not appear distressed. HENT: Exam performed. -Head: Normocephalic and atraumatic. -Right Ear: External ear normal. No mastoid tenderness. -Left Ear: External ear normal. No mastoid tenderness. -Mouth/Throat: The oropharynx is clear and moist. No trismus in the jaw. No dental abscesses or uvula swelling. No oropharyngeal exudate or tonsillar abscesses. EYES: Conjunctivae and EOM are normal. Pupils are equal, round, and reactive to light. Right eye exhibits no discharge. Left eye exhibits no discharge. No scleral icterus. NECK: Normal range of motion. Neck supple. No JVD present. No spinous process tenderness present. No carotid bruit present. No rigidity. No tracheal deviation and normal range of motion present. No Brudzinski's sign and no Kernig's sign noted. CV: Normal rate, regular rhythm, normal heart sounds and intact distal pulses. There is no peripheral edema. Palpable radial pulses bue. PULM/CHEST: Effort normal and breath sounds normal. No respiratory distress. No stridor. She has no wheezes. She has no rales. -Chest Wall: She exhibits no tenderness. ABD: The abdomen is soft. Bowel sounds are normal. She has no distension. No ma ss is present. There is diffuse pain on palpation of the abdomen. Lechuga sign and Rovsing sign negative. No rebound or guarding. MUSC/SKEL: Normal range of motion. There is no peripheral edema, tenderness or deformity. LYMPH: No cervical adenopathy. NEURO: She is alert and oriented to person, place, and time. She has normal strength. No cranial nerve deficit or sensory deficit. Coordination and gait normal. GCS eye subscore is 4. GCS verbal subscore is 5. GCS motor subscore is 6. Cerebellar tests wnl. SKIN: Skin is warm and dry. She is not diaphoretic. PSYCH: She has a normal mood and affect. Behavior is normal. Judgment and thought content normal. Course Course 2100: The patient was evaluated in room A11. A complete history and physical exam was performed Cardiac monitoring: An order was placed for continuous cardiac monitoring. The monitor shows a rate of 60 with sinus rhythm Patient was seen during a time of extreme volume and extreme acuity during the pandemic. Nursing triage protocols were initiated and labs were drawn by protocol in the triage area. Patient's white blood cell count within normal limits. Lipase greater than 2000. Alkaline phosphatase elevated 293. AST/ALT 392/299. Patient denies any history of cholecystectomy. She denies any alcohol abuse. [facility] be [facility]. Ultrasound of the right upper quadrant will be ordered. It is unlikely this patient has acute cholecystitis given her lack of fever and lack of the Lechuga sign. Administered Medications Lactated Ringer's (Lr) 1,000 mls @ 200 mls/hr IV .Q5H STA Stop: 01/10/21 03:18 Last Admin: 01/09/21 23:19 Dose: 200 mls/hr Documented by: [id number] Discontinued Medications Sodium Chloride (Nss 1000ml) 1,000 mls @ 999 mls/hr IV .Q1H1M ONE Stop: 01/09/21 22:03 Last Admin: 01/09/21 21:16 Dose: 999 mls/hr Documented by: [id number] Morphine Sulfate (Morphine Sulfate 4 Mg/Ml 1 Ml Carp\\Vial) 4 mg IV NOW STA Stop: 01/09/21 21:04 Last Admin: 01/09/21 21:16 Dose: 4 mg Documented by: [id number] Ondansetron HCl (Ondansetron Inj 2 Mg/Ml 2 Ml Vial) 4 mg IV NOW STA Stop: 01/09/21 18:31 Last Admin: 01/09/21 18:34 Dose: 4 mg Documented by: [id number] Ondansetron HCl (Ondansetron Inj 2 Mg/Ml 2 Ml Vial) 4 mg IV NOW STA Stop: 01/09/21 21:04 Last Admin: 01/09/21 21:16 Dose: 4 mg Documented by: [id number] Medical Decision Making Laboratory Data Result diagrams: 01/09/21 18:30 01/09/21 18:30 Lab Results 01/09/21 01/09/21 01/09/21 Range/Units 18:30 18:30 21:18 WBC 6.72 (4.8-10.8) K/uL RBC 4.42 (4.2-5.4) M/uL Hgb 13.4 (12.0-16.0) g/dL Hct 39.7 (37-47) % MCV 89.8 (80-100) fL MCH 30.3 (25-34) pg MCHC 33.8 (32-36) g/dL RDW Std Deviation 46.1 (36.4-46.3) fL RDW Coeff of Landon 14.0 (11.5-14.5) % Plt Count 258 (130-400) K/uL MPV 8.7 (7.4-10.4) fL Immature Gran % (Auto) 0.1 % Neut % (Auto) 81.2 % Lymph % (Auto) 10.4 % [place] % (Auto) 7.6 % Eos % (Auto) 0.4 % Baso % (Auto) 0.3 % Neut # (Auto) 5.45 (1.4-6.5) K/uL Lymph # (Auto) 0.70 L (1.2-3.4) K/uL [place] # (Auto) 0.51 (0.11-0.59) K/uL Eos # (Auto) 0.03 (0-0.5) K/uL Baso # (Auto) 0.02 (0-0.2) K/uL Immature Gran # (Auto) 0.01 (0.00-0.02) K/uL PT (9.0-12.0) Seconds INR (0.9-1.1) Sodium 137 (136-145) mmol/L Potassium 4.2 (3.5-5.1) mmol/L Chloride 109 H (98-107) mmol/L Carbon Dioxide 20 L (21-32) mmol/L Anion Gap 8.0 (3-11) BUN 9 (7-18) mg/dl Creatinine 1.01 (0.6-1.2) mg/dl Est Cr Clr Drug Dosing Not Reportable Est GFR ( Amer) 69.1 ml/min Est GFR (Non-Af Amer) 59.6 ml/min BUN/Creatinine Ratio 8.7 L (10-20) Glucose 144 H (70-99) mg/dl Calcium 8.7 (8.5-10.1) mg/dl Magnesium (1.8-2.4) mg/dl Total Bilirubin 1.1 H (0.2-1) mg/dl AST 392 H (15-37) U/L ALT 299 H (12-78) U/L Alkaline Phosphatase 293 H (45-117) U/L Total Protein 7.2 (6.4-8.2) gm/dl Albumin 3.8 (3.4-5.0) gm/dl Globulin 3.4 (2.5-4.0) gm/dl Albumin/Globulin Ratio 1.1 (0.9-2) Lipase 2037 H (73-393) U/L Specimen Hemolysis Ethyl Alcohol mg/dL (0-3) mg/dl COVID-19 Eval Order Covid19 at [facility] SARS-CoV-2 (PCR) (Negative) 01/09/21 01/09/21 01/09/21 Range/Units 21:18 22:38 22:38 WBC (4.8-10.8) K/uL RBC (4.2-5.4) M/uL Hgb (12.0-16.0) g/dL Hct (37-47) % MCV (80-100) fL MCH (25-34) pg MCHC (32-36) g/dL RDW Std Deviation (36.4-46.3) fL RDW Coeff of Landon (11.5-14.5) % Plt Count (130-400) K/uL MPV (7.4-10.4) fL Immature Gran % (Auto) % Neut % (Auto) % Lymph % (Auto) % [place] % (Auto) % Eos % (Auto) % Baso % (Auto) % Neut # (Auto) (1.4-6.5) K/uL Lymph # (Auto) (1.2-3.4) K/uL [place] # (Auto) (0.11-0.59) K/uL Eos # (Auto) (0-0.5) K/uL Baso # (Auto) (0-0.2) K/uL Immature Gran # (Auto) (0.00-0.02) K/uL PT (9.0-12.0) Seconds INR (0.9-1.1) Sodium (136-145) mmol/L Potassium (3.5-5.1) mmol/L Chloride (98-107) mmol/L Carbon Dioxide (21-32) mmol/L Anion Gap (3-11) BUN (7-18) mg/dl Creatinine (0.6-1.2) mg/dl Est Cr Clr Drug Dosing Est GFR ( Amer) ml/min Est GFR (Non-Af Amer) ml/min BUN/Creatinine Ratio (10-20) Glucose (70-99) mg/dl Calcium (8.5-10.1) mg/dl Magnesium 2.3 (1.8-2.4) mg/dl Total Bilirubin (0.2-1) mg/dl AST (15-37) U/L ALT (12-78) U/L Alkaline Phosphatase (45-117) U/L Total Protein (6.4-8.2) gm/dl Albumin (3.4-5.0) gm/dl Globulin (2.5-4.0) gm/dl Albumin/Globulin Ratio (0.9-2) Lipase (73-393) U/L Specimen Hemolysis Ethyl Alcohol mg/dL < 3.0 (0-3) mg/dl COVID-19 Eval Order SARS-CoV-2 (PCR) NEGATIVE (Negative) 01/09/21 Range/Units 22:38 WBC (4.8-10.8) K/uL RBC (4.2-5.4) M/uL Hgb (12.0-16.0) g/dL Hct (37-47) % MCV (80-100) fL MCH (25-34) pg MCHC (32-36) g/dL RDW Std Deviation (36.4-46.3) fL RDW Coeff of Landon (11.5-14.5) % Plt Count (130-400) K/uL MPV (7.4-10.4) fL Immature Gran % (Auto) % Neut % (Auto) % Lymph % (Auto) % [place] % (Auto) % Eos % (Auto) % Baso % (Auto) % Neut # (Auto) (1.4-6.5) K/uL Lymph # (Auto) (1.2-3.4) K/uL [place] # (Auto) (0.11-0.59) K/uL Eos # (Auto) (0-0.5) K/uL Baso # (Auto) (0-0.2) K/uL Immature Gran # (Auto) (0.00-0.02) K/uL PT 10.5 (9.0-12.0) Seconds INR 1.0 (0.9-1.1) Sodium (136-145) mmol/L Potassium (3.5-5.1) mmol/L Chloride (98-107) mmol/L Carbon Dioxide (21-32) mmol/L Anion Gap (3-11) BUN (7-18) mg/dl Creatinine (0.6-1.2) mg/dl Est Cr Clr Drug Dosing Est GFR ( Amer) ml/min Est GFR (Non-Af Amer) ml/min BUN/Creatinine Ratio (10-20) Glucose (70-99) mg/dl Calcium (8.5-10.1) mg/dl Magnesium (1.8-2.4) mg/dl Total Bilirubin (0.2-1) mg/dl AST (15-37) U/L ALT (12-78) U/L Alkaline Phosphatase (45-117) U/L Total Protein (6.4-8.2) gm/dl Albumin (3.4-5.0) gm/dl Globulin (2.5-4.0) gm/dl Albumin/Globulin Ratio (0.9-2) Lipase (73-393) U/L Specimen Hemolysis Ethyl Alcohol mg/dL (0-3) mg/dl COVID-19 Eval Order SARS-CoV-2 (PCR) (Negative) MDM Narrative The patient was evaluated in room A11. A complete history and physical exam was performed Cardiac monitoring: An order was placed for continuous cardiac monitoring. The monitor shows a rate of 60 with sinus rhythm Patient was seen during a time of extreme volume and extreme acuity during the ID- pandemic. Nursing triage protocols were initiated and labs were drawn by protocol in the triage area. Patient's white blood cell count within normal limits. Lipase greater than 2000. Alkaline phosphatase elevated 293. AST/ALT 392/299. Patient denies any history of cholecystectomy. She denies any alcohol abuse. [facility] will be [facility]. Ultrasound of the right upper quadrant will be ordered. It is unlikely this patient has acute cholecystitis given her lack of fever and lack of the Lechuga sign. Impression & Plan Pancreatitis Discharge Plan Visit Data Chief Complaint: Abdominal Pain Stated Complaint: ABDOMINAL PAIN ON RIGHT SIDE Discharge Problem: Pancreatitis Patient Disposition: Admitted As Inpatient Discharge Instructions Interventions: ED Discharge Assessment Last Done: 01/09/21 23:33
[2021-01-10 03:12] LABS: Thyroid Stimulating Hormone 2.3 uIu/ml (0.300-4.500)
[2021-01-10] MEDS: LACTATED RINGER'S 1,000 ML IV SCH ×5 (06:23→21:58)
[2021-01-10 06:49] LABS: Basophils # (auto) 0.04 K/uL (0-0.2); Basophils % (auto) 0.5 %; Eosinophils # (auto) 0.08 K/uL (0-0.5); Hemoglobin 12.7 g/dL (12.0-16.0); Immature Granulocytes # (auto) 0.03 K/uL (0.00-0.02); Immature Granulocytes % (auto) 0.4 %; Lymphocytes # (auto) 0.87 K/uL (1.2-3.4); Lymphocytes % (auto) 10.9 %; Mean Corpuscular Hemoglobin 30.2 pg (25-34); Mean Corpuscular Hgb Conc 33.4 g/dL (32-36); Mean Corpuscular Volume 90.5 fL (80-100); Mean Platelet Volume 9.4 fL (7.4-10.4); Monocytes # (auto) 0.98 K/uL (0.11-0.59); Monocytes % (auto) 12.3 %; Neutrophils # (auto) 5.98 K/uL (1.4-6.5); Neutrophils % (auto) 74.9 %; Platelet Count 266 K/uL (130-400); RDW Coefficient of Variation 14.3 % (11.5-14.5); RDW Standard Deviation 46.9 fL (36.4-46.3); White Blood Count 7.98 K/uL (4.8-10.8)
[2021-01-10 07:15] LABS: Albumin Level 3.3 gm/dl (3.4-5.0); BUN Creatinine Ratio 8.4 (10-20); Creatinine Clr Calc Pharmacy 72.8 ml/min; Est GFR (African American) 83.9 ml/min; Est GFR (Non-African American) 72.4 ml/min; Potassium 4.1 mmol/L (3.5-5.1)
[2021-01-10 07:18] LABS: Bilirubin,Total 1.2 mg/dl (0.2-1); Globulin 3.3 gm/dl (2.5-4.0); Total Protein 6.6 gm/dl (6.4-8.2)
[2021-01-10 08:04] LABS: Estimated Average Glucose 105 mg/dl; Hemoglobin A1C 5.3 % (4.5-5.6)
[2021-01-10] MEDS: ESCITALOPRAM OXALATE 10 MG TAB PO SCH (08:05)
[2021-01-10] MEDS: lamoTRIgine 25 MG TAB PO SCH (08:05)
[2021-01-10] MEDS: ANASTROZOLE 1 MG TAB PO SCH (08:06)
--- NOTE | 2021-01-10 08:06 | Ultrasound Report ---
ABDOMINAL ULTRASOUND, RIGHT UPPER QUADRANT HISTORY: Right upper quadrant pain.. COMPARISON: Abdominal ultrasound 07/10/2016. FINDINGS: Pancreas: The pancreatic head and tail are obscured by overlying bowel gas. The remaining portions of the pancreas are within normal limits. Liver: Unremarkable. Gallbladder: Multiple small gallstones. No gallbladder wall thickening. Trace pericholecystic fluid i s noted. The technologist was unable to assess for a Lechuga's sign due to analgesia. CBD: 8 mm. Right kidney: No hydronephrosis. A 1.8 cm upper pole cyst. IMPRESSION: 1. Cholelithiasis. No gallbladder wall thickening. There is trace pericholecystic fluid. 2. Distended common bile duct measuring up to 8 mm. ACT 112: Negative or not required by law. Electronically signed by: Jermaine Presley M.D. 01/10/2021 8:04 AM
--- NOTE | 2021-01-10 09:02 | Magnetic Resonance Report ---
MR MRCP CLINICAL HISTORY: abd pain, abn lfts right upper quadrant pain for 2 days. History of breast cancer s tatus post mastectomy. COMPARISON: None available at the time of this dictation. TECHNIQUE: Multiplanar multisequence images were obtained of the abdomen with and without the adminis tration of contrast. FINDINGS: Lower chest: No acute abnormality Liver: Unremarkable. No focal lesions are seen. Gallbladder and biliary tree: Cholelithiasis is seen without evidence of cholecystitis. The common bi le duct is dilated measuring up to 8 mm in diameter. The intrahepatic bile ducts are relatively marcia l in diameter. Filling defects are noted in the distal common bile duct compatible with choledocholit hiasis. Pancreas: Unremarkable, no focal lesions. Spleen: Unremarkable. Adrenals: Unremarkable. Kidneys and ureters: Previously noted renal cysts are stable. Bowel: Unremarkable. Lymph nodes Retroperitoneal: Unremarkable. Mesenteric: Unremarkable. Peritoneum: Normal Vessels: Atherosclerotic calcifications are seen. Abdominal wall: Unremarkable. Bones: Degenerative changes in the visualized spine. IMPRESSION: 1. Enlarged common bile duct with filling defects compatible with choledocholithiasis. 2. Cholelithiasis without evidence of cholecystitis. ACT 112: Negative or not required by law. Electronically signed by: Dewey Hurd M.D. 01/10/2021 9:01 AM
--- NOTE | 2021-01-10 09:36 | Gastrointestinal Consultation ---
Date of Consultation January 10, 2021 Assessment & Plan (1) Pancreatitis: (2) Choledocholithiasis: Pt is a 60 y/o female w hx of metastatic breast ca s/p R mastectomy, XRT, chemo therapy, currently admitted for gallstone pancreatitis. - Continue LR resuscitation - NPO - Plan for ERCP in OR by Dr. Ascencio this afternoon - Indomethacin 100mg TX x 1 dose pre med for ERCP (given at OR holding) - Symptomatic management with antiemetics and analgesics prn - Consult Gen Surgery to eval for possible cholecystectomy Supervising Physician Co-Signing Physician Notes I saw and evaluated the patient. She presented with abdominal pain and elevated transaminases with an MRI showing choledocholithiasis. PE: Mild icterus RUQ tender to palpation Impression: patient with symptomatic choledocholithiasis. we are planning for ERCP today and cholecystectomy with Dr. hinson. I have disucssed the risks of ERCP to include bleeding, infection, perfortion, pain, pancreatitis, and failed biliary cannulation. Plan: 1) ERCP today. History of Present Illness Reason for Consultation: Pancreatitis Requesting Physician: Dr. Kate Tinoco Attending Physician: Dr. Mela Ascencio History of Present Illness Pt is a 60 y/o female w hx of metastatic breast ca s/p R mastectomy, XRT, chemo who presented yesterday w c/o R sided abd pain x 2 days associated w nausea, no vomiting. She denies jaundice, fever, chills, bowel habit changes. She does feel a bit constipated, last BM yesterday, small amt and is passing flatus. On evaluation she is noted to have elevated LFTs (normal at baseline): Tbili 1.2, AST 182, ALT 203, Alk phos 261, Lipase 7. US showed signs of gallstones w CBD of 8mm. MRCP this AM showed signs of dilated CBD w choledocholithiasis. She has cholelithiasis but w/o signs of cholecystitis. No tobacco, ETOH, rec drugs, herbal supplements. Allergies Allergy/AdvReac Type Severity Reaction Status Date / Time latex Allergy Unknown BURNING,FLEX Verified 01/09/21 22:04 MATITIS Home Medications Medication Instructions Recorded Confirmed Type anastrozole 1 mg tablet 1 mg PO QAM 04/01/19 01/09/21 History aripiprazole 10 mg tablet 10 mg PO HS 04/01/19 01/09/21 History escitalopram oxalate 5 mg tablet 5 mg PO QAM 04/01/19 01/09/21 History lamotrigine 25 mg tablet 50 mg PO DAILY 04/01/19 01/09/21 History ondansetron HCl 8 mg tablet 8 mg PO TID PRN 04/01/19 01/09/21 History sodium di- and 1 tab PO BID 04/01/19 01/09/21 History monophosphate-potassium phos monobasic 250 mg tablet (Phospha 250 Neutral) bismuth subsalicylate 262 mg/15 mL 524 mg PO QID PRN 01/09/21 01/09/21 History oral suspension (Pepto-Bismol) oxycodone 5 mg tablet (Roxicodone) 5 mg PO Q8H PRN 01/09/21 01/09/21 History pyridoxine (vitamin B6) 250 mg 250 mg PO QAM 01/09/21 01/09/21 History tablet (Vitamin B-6) vitamin E 400 unit capsule 400 unit PO QAM 01/09/21 01/09/21 History Patient History Medical History Breast CA Dehydration Elevated LFTs HTN (hypertension) Kidney stone Metastatic breast cancer (06/12/06) Status post stereotactic biopsy right breast 06/12/2006 DCIS Status post simple simple mastectomy with reconstruction and sentinel lymph node biopsy 09/15/2016 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 Estrogen receptor positive, progesterone receptor negative, HER-2/tomas positive Nausea, vomiting, weight loss, feeling of off balance and leg weakness CT 09/22/2016 revealing multiple lytic and blastic bone lesions Status post bone marrow biopsy 10/02/2016 revealing metastatic breast cancer Estrogen receptor positive, progesterone receptor positive, and HER-2/tomas positive Status post brain MRI 10/23/2016 Multifocal calvarial and dural based enhancing lesions consistent with metastatic disease A few small enhancing intraparenchymal lesions suspicious for metastatic disease" Status post MRI May 07, 2017. Multiple enhancing lesions bilateral cerebral hemispheres and left cerebellum consistent with metastatic discussed. Systemic chemotherapy Status post SBRT therapy to the brain completed June 20, 2017. She received 2750 cGy. Status post MRI December 17, 2017 revealing multiple enhancing foci both cerebral hemispheres. Status post completion of whole brain radiation therapy 01/21/2018. She received 3750 cGy. Mood disorder Nausea vomiting and diarrhea Nausea, vomiting and diarrhea Thrombocytopenia Vomiting Surgical History H/O mastectomy Family History Other Cancer Social History Smoking Status: Never smoker Hx Alcohol Use: Yes Alcohol type: beer Alcohol Intake Frequency: Monthly or Less Hx Substance Use: No Preferred Language: Japanese Train Electronic Technician Required: No Beliefs That Will Affect Care: None Current Living Situation: Family Other Information That Helps Us Care for You: No Feels Safe at Home: Yes Safety Concerns: Feels Safe At This Time Assistive Devices: Glasses Review of Systems Review of Systems: All systems reviewed & are unremarkable except as noted in HPI & below Physical Exam Constitutional: WD/WN, vitals as above well groomed, cooperative and comfortable Eyes: PERRL, conjunctivae normal, anicteric sclerae ENMT: external ear and nose normal, oropharynx normal Respiratory: normal respiratory effort, lungs clear to auscultation Cardiovascular: RRR, no murmur, no edema Gastrointestinal (Abdomen): TTP RUQ, BS hypoactive, soft Skin: no rashes, warm and dry no jaundice Psychiatric: A+Ox3, euthymic affect Lymphatic: no lymphedema Results & Data ([facility]) Vital Signs (Past 12 Hours) Vital Signs Temp Pulse Resp BP Pulse Ox 01/10/21 07:44 36.5 C 55 L 20 107/70 97 01/10/21 01:06 16 153/84 H 99 01/10/21 00:48 36.8 C 54 L 18 145/80 H 97 01/09/21 23:21 54 L 16 127/69 98 01/09/21 22:12 56 L 19 134/72 99 (1) Pancreatitis Acute pancreatitis complication: unspecified Chronicity: acute Pancreatitis type: unspecified pancreatitis type Qualified Code(s): K85.90 - Acute pa ncreatitis without necrosis or infection, unspecified
[2021-01-10] MEDS ORDERED: INDOMETHACIN 50 MG SUPP PR ONE ×2 (09:42→14:02)
--- NOTE | 2021-01-10 10:33 | Anesthesiology Consultation ---
Date of Service January 10, 2021 Assessment & Plan (1) Encounter for pre-operative examination: Chart Review Chart Review: Acceptable Risk for Surgery and Patient NOT seen in Pre Admission Testing Consults Requested none Preoperative EKG ordered and will need to be reviewed by anesthesia prior to surgery. History Surgery Operation Date: 01/10/21 09:00 Proposed Procedures p Endoscopic Retrograde Cholangiopancreatogram - Mela Ascencio DO Height/Weight Height: 5 ft 7 in Weight: 77.6 kg Allergies Allergy/AdvReac Type Severity Reaction Status Date / Time latex Allergy Unknown BURNING,FLEX Verified 01/09/21 22:04 MATITIS Medications Home Medications Medication Instructions Recorded Confirmed Last Taken anastrozole 1 mg tablet 1 mg PO QAM 04/01/19 01/09/21 01/07/21 aripiprazole 10 mg tablet 10 mg PO HS 04/01/19 01/09/21 01/06/21 escitalopram oxalate 5 mg tablet 5 mg PO QAM 04/01/19 01/09/21 01/07/21 lamotrigine 25 mg tablet 50 mg PO DAILY 04/01/19 01/09/21 01/07/21 ondansetron HCl 8 mg tablet 8 mg PO TID PRN 04/01/19 01/09/21 Unknown sodium di- and 1 tab PO BID 04/01/19 01/09/21 01/09/21 monophosphate-potassium phos monobasic 250 mg tablet (Phospha 250 Neutral) bismuth subsalicylate 262 mg/15 mL 524 mg PO QID PRN 01/09/21 01/09/21 01/09/21 oral suspension (Pepto-Bismol) oxycodone 5 mg tablet (Roxicodone) 5 mg PO Q8H PRN 01/09/21 01/09/21 01/09/21 pyridoxine (vitamin B6) 250 mg 250 mg PO QAM 01/09/21 01/09/21 01/07/21 tablet (Vitamin B-6) vitamin E 400 unit capsule 400 unit PO QAM 01/09/21 01/09/21 01/07/21 Active Medications Generic Name Dose Route Start Last Admin Trade Name Freq PRN Reason Stop Dose Admin Anastrozole 1 mg 01/10/21 09:00 01/10/21 08:06 Anastrozole 1 Mg Tab PO 02/09/21 08:59 1 mg QAM BREA Administration Escitalopram Oxalate 5 mg 01/10/21 09:00 01/10/21 08:05 Escitalopram Oxalate 10 Mg Tab PO 02/09/21 08:59 5 mg QAM BREA Administration Lactated Ringer's 1,000 mls @ 200 mls/hr 01/10/21 03:30 01/10/21 06:23 Lr IV 02/09/21 03:29 200 mls/hr .Q5H BREA Administration Lamotrigine 50 mg 01/10/21 09:00 01/10/21 08:05 Lamotrigine 25 Mg Tab PO 02/09/21 08:59 50 mg DAILY BREA Administration Morphine Sulfate 4 mg 01/09/21 22:50 01/10/21 01:06 Morphine Sulfate 4 Mg/Ml 1 Ml Carp\\Vial IV 01/23/21 22:49 4 mg Q4H PRN Administration Pain Past Medical History Medical History Breast CA Dehydration Elevated LFTs HTN (hypertension) Kidney stone Metastatic breast cancer (06/12/06) Status post stereotactic biopsy right breast 06/12/2006 DCIS Status post simple simple mastectomy with reconstruction and sentinel lymph node biopsy 09/15/2016 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 Estrogen receptor positive, progesterone receptor negative, HER-2/tomas positive Nausea, vomiting, weight loss, feeling of off balance and leg weakness CT 09/22/2016 revealing multiple lytic and blastic bone lesions Status post bone marrow biopsy 10/02/2016 revealing metastatic breast cancer Estrogen receptor positive, progesterone receptor positive, and HER-2/tomas positive Status post brain MRI 10/23/2016 Multifocal calvarial and dural based enhancing lesions consistent with metastatic disease A few small enhancing intraparenchymal lesions suspicious for metastatic disease" Status post MRI May 07, 2017. Multiple enhancing lesions bilateral cerebral hemispheres and left cerebellum consistent with metastatic discussed. Systemic chemotherapy Status post SBRT therapy to the brain completed June 20, 2017. She received 2750 cGy. Status post MRI December 17, 2017 revealing multiple enhancing foci both cerebral hemispheres. Status post completion of whole brain radiation therapy 01/21/2018. She received 3750 cGy. Mood disorder Nausea vomiting and diarrhea Nausea, vomiting and diarrhea Thrombocytopenia Vomiting Past Family History Family History Other Cancer Past Surgical History Surgical History H/O mastectomy Social History Smoking Status: Never smoker Hx Alcohol Use: Yes Alcohol type: beer alcohol intake frequency: holidays/special occasions only Hx Substance Use: No Physical Exam Vital Signs Last Vital Signs Temp 36.5 C 01/10/21 07:44 Pulse 55 L 01/10/21 07:44 Resp 20 01/10/21 07:44 BP 107/70 01/10/21 07:44 Pulse Ox 97 01/10/21 07:44 Testing Laboratory Results 01/10/21 06:19 01/10/21 06:19 PT 10.5 Seconds (9.0-12.0) 01/09/21 22:38 INR 1.0 (0.9-1.1) 01/09/21 22:38 Hemoglobin A1c 5.3 % (4.5-5.6) 01/09/21 22:38 Urine Color Yellow 01/09/21 22:58 Urine Appearance Clear (Clear) 01/09/21 22:58 Urine pH 5.5 (4.5-7.5) 01/09/21 22:58 Ur Specific Topping 1.003 (1.000-1.030) 01/09/21 22:58 Urine Protein Negative (Negative) 01/09/21 22:58 Urine Glucose (UA) Negative (Negative) 01/09/21 22:58 Urine Ketones Negative (Negative) 01/09/21 22:58 Urine Nitrite Negative (Negative) 01/09/21 22:58 Ur Leukocyte Esterase Trace (Negative) H 01/09/21 22:58 Urine WBC (Auto) 5-10 /hpf (0-5) H 01/09/21 22:58 Urine RBC (Auto) 0-4 /hpf (0-4) 01/09/21 22:58 U Hyaline Cast (Auto) 1-5 /lpf (0-5) 01/09/21 22:58 U Epithel Cells (Auto) 5-10 /lpf (0-5) H 01/09/21 22:58 Urine Bacteria (Auto) Negative (Negative) 01/09/21 22:58
--- NOTE | 2021-01-10 10:43 | Surgery Consultation ---
Date of Consultation January 10, 2021 Assessment & Plan (1) Gallstone pancreatitis: Patient with gallstone pancreatitis and filling defects in her common bile duct She is for ERCP later today I believe we should proceed with laparoscopic cholecystectomy after the ERCP Patient wishes to proceed History of Present Illness Attending Physician: Kate Tinoco MD History of Present Illness 60-year-old female who was admitted through the emergency room complaining of right-sided abdominal pain Findings consistent with gallstone pancreatitis She did ultrasound showing gallstones and a common bile duct of 8 mm with a distended gallbladder MRCP did show filling defects in the common bile duct She has a history of metastatic breast cancer I believe she is being treated with Herceptin but unsure Patient is for ERCP later today with Dr. Ascencio Allergies Allergy/AdvReac Type Severity Reaction Status Date / Time latex Allergy Unknown BURNING,FLEX Verified 01/09/21 22:04 MATITIS Home Medications Medication Instructions Recorded Confirmed Type anastrozole 1 mg tablet 1 mg PO QAM 04/01/19 01/09/21 History aripiprazole 10 mg tablet 10 mg PO HS 04/01/19 01/09/21 History escitalopram oxalate 5 mg tablet 5 mg PO QAM 04/01/19 01/09/21 History lamotrigine 25 mg tablet 50 mg PO DAILY 04/01/19 01/09/21 History ondansetron HCl 8 mg tablet 8 mg PO TID PRN 04/01/19 01/09/21 History sodium di- and 1 tab PO BID 04/01/19 01/09/21 History monophosphate-potassium phos monobasic 250 mg tablet (Phospha 250 Neutral) bismuth subsalicylate 262 mg/15 mL 524 mg PO QID PRN 01/09/21 01/09/21 History oral suspension (Pepto-Bismol) oxycodone 5 mg tablet (Roxicodone) 5 mg PO Q8H PRN 01/09/21 01/09/21 History pyridoxine (vitamin B6) 250 mg 250 mg PO QAM 01/09/21 01/09/21 History tablet (Vitamin B-6) vitamin E 400 unit capsule 400 unit PO QAM 01/09/21 01/09/21 History Patient History Medical History Breast CA Dehydration Elevated LFTs HTN (hypertension) Kidney stone Metastatic breast cancer (06/12/06) Status post stereotactic biopsy right breast 06/12/2006 DCIS Status post simple simple mastectomy with reconstruction and sentinel lymph node biopsy 09/15/2016 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 Estrogen receptor positive, progesterone receptor negative, HER-2/tomas positive Nausea, vomiting, weight loss, feeling of off balance and leg weakness CT 09/22/2016 revealing multiple lytic and blastic bone lesions Status post bone marrow biopsy 10/02/2016 revealing metastatic breast cancer Estrogen receptor positive, progesterone receptor positive, and HER-2/tomas positive Status post brain MRI 10/23/2016 Multifocal calvarial and dural based enhancing lesions consistent with metastatic disease A few small enhancing intraparenchymal lesions suspicious for metastatic disease" Status post MRI May 07, 2017. Multiple enhancing lesions bilateral cerebral hemispheres and left cerebellum consistent with metastatic discussed. Systemic chemotherapy Status post SBRT therapy to the brain completed June 20, 2017. She received 2750 cGy. Status post MRI December 17, 2017 revealing multiple enhancing foci both cerebral hemispheres. Status post completion of whole brain radiation therapy 01/21/2018. She received 3750 cGy. Mood disorder Nausea vomiting and diarrhea Nausea, vomiting and diarrhea Thrombocytopenia Vomiting Surgical History H/O mastectomy Family History Other Cancer Social History Smoking Status: Never smoker Hx Alcohol Use: Yes Alcohol type: beer Alcohol Intake Frequency: Monthly or Less Hx Substance Use: No Preferred Language: Norwegian Water Resources Engineer Required: No Beliefs That Will Affect Care: None Current Living Situation: Family Other Information That Helps Us Care for You: No Feels Safe at Home: Yes Safety Concerns: Feels Safe At This Time Assistive Devices: Glasses Review of Systems Review of Systems: All systems reviewed & are unremarkable except as noted in HPI & below Physical Exam Physical Exam: Patient is awake and alert she is mildly ill-appearing She is in no distress Constitutional: well developed; no acute distress Eyes: + anicteric sclerae Respiratory: normal respiratory effort; no respiratory distress Cardiovascular: Rate/Rhythm: regular rate Gastrointestinal (Abdomen): Inspection/Auscultation: abdomen not distended Percussion/Palpation: abdomen soft Musculoskeletal: Head/Neck/Chest: head atraumatic Skin: no rashes, warm and dry Neurologic: awake Psychiatric: Orientation: alert Results & Data ([facility]) Vital Signs (Past 12 Hours) Vital Signs Temp Pulse Resp BP Pulse Ox 01/10/21 07:44 36.5 C 55 L 20 107/70 97 01/10/21 01:06 16 153/84 H 99 01/10/21 00:48 36.8 C 54 L 18 145/80 H 97 01/09/21 23:21 54 L 16 127/69 98 Laboratory Results I have reviewed her laboratories Diagnostic Findings I have reviewed her ultrasound and MRCP PG Care Time/CCT Total # of Minutes Spent Total Time Spent with Patient: Total time spent is greater than 50% in coordination of care (as documented) at patient's floor/unit and/or counseling patient: Coding Level of Care Code 43812 Inpt Consult Level 4 Diagnoses Gallstone pancreatitis K85.10
[2021-01-10] MEDS ORDERED: PIPERACILL/TAZOBAC CONSULT ACTIVE PRN ×2 (10:53→19:17)
[2021-01-10] MEDS ORDERED: PIPERACILLIN/TAZOBACTAM 3.375 GM in DEXTROSE 5% 100 ML IV ONE (11:15)
[2021-01-10] MEDS ORDERED: fentaNYL citrate 100 MCG/2 ML VIAL ONE ×2 (13:30→16:04)
[2021-01-10] MEDS ORDERED: MIDAZOLAM HCL 1 MG/ML 2ML VIAL ONE (13:30)
--- NOTE | 2021-01-10 13:57 | Hospitalist Progress Note ---
Date of Service January 10, 2021 Assessment & Plan (1) Pancreatitis: (2) Transaminitis: (3) Metastatic breast cancer: (4) HTN (hypertension): (5) Mood disorder: Plan: This is a 60yo F with a PMH of metastatic breast cancer, hypertension, mood disorder and other medical problems listed below who presents with abdominal pain that began yesterday and was found to have pancreatitis and transaminitis. Choledocholithiasis Liver LFTs Overall doing okay. Primary complaint is pain. LFTs improved. Patient remains n.p.o. Appreciate GI and general surgery input. Continue maintenance IV fluids. Plan for ERCP today followed by cholecystectomy. Antiemetics/analgesic as needed. Oxycodone/morphine. Continue current PD medications including Abilify, Arimidex, Lamictal and Lexapro. Admission and Anticipated Discharge Date Admission Date: January 09, 2021 Subjective Patient doing okay. However does report down 10 points of abdominal pain. Denies any nausea vomiting. Denies any chest pain or shortness of breath. Rest of the review of system is negative Review of Systems Review of Systems: All systems reviewed & are unremarkable except as noted in HPI & below Physical Exam Physical Exam: General: A&Ox3 HENT: NCAT, MMM, EOMI Eyes: PERRLA Neck: Supple, normal range of motion CVS: normal rate and rhythm Resp: b/l good breath sounds Abdomen: Soft, right sided mild tendersness apprecaited Extremities: absence of any edema Neuro: face symmetric, strength grossly equal, no focal deficit Skin: no rashes/lesions/errythema MSK: no joint swelling/erythema Results & Data Results & Data ([facility]) Vital Signs (Past 12 Hours) Vital Signs Temp Pulse Resp BP Pulse Ox 01/10/21 11:14 37.0 C 52 L 20 106/69 96 01/10/21 07:44 36.5 C 55 L 20 107/70 97 (1) Pancreatitis Acute pancreatitis complication: unspecified Chronicity: acute Pancreatitis type: unspecified pancreatitis type Qualified Code(s): K85.90 - Acute pancreatitis without necrosis or infection, unspecified
[2021-01-10] MEDS ORDERED: BUPIVACAINE 0.5 % 5 MG/1 ML MPF 30ML VIAL ONE (14:02)
--- NOTE | 2021-01-10 14:04 | History & Physical Bridge Note ---
Date of Service January 10, 2021 History & Physical Bridge Note I have examined the patient, reviewed the History & Physical and in the interval since the performance of the History & Physical I have noted the following changes of clinical significance: no changes noted. ERCP planned for treatment of symptomatic choledocholithasis. I have discussed the risks to include bleeding, infection, perforation, pain, pancreatitis, and failed biliary cannulation. MRCP results 01/10/21 Gallbladder and biliary tree: Cholelithiasis is seen without evidence of cholecystitis. The common bile duct is dilated measuring up to 8 mm in diameter. The intrahepatic bile ducts are relatively normal in diameter. Filling defects are noted in the distal common bile duct compatible with choledocholithiasis.
[2021-01-10] MEDS ORDERED: fentaNYL citrate 100 MCG/2 ML VIAL IV PRN (14:32)
[2021-01-10] MEDS ORDERED: HYDROmorphone INJ 2 MG/ML SYR/VIAL IV PRN (14:32)
[2021-01-10] MEDS ORDERED: ONDANSETRON INJ 2 MG/ML 2 ML VIAL IV PRN (14:32)
[2021-01-10] MEDS ORDERED: ePHEDrine sulfate 50 MG/ML AMP IV PRN (14:32)
[2021-01-10] MEDS ORDERED: ATROPINE SULFATE 0.1 MG/ML 10ML SYR IV PRN (14:32)
[2021-01-10] MEDS ORDERED: PROMETHAZINE HCL 6.25 MG in SODIUM CHLORIDE 0.9% 50 ML IV PRN (14:32)
[2021-01-10] MEDS ORDERED: DEXAMETHASONE SOD INJ 4 MG/ML VIAL ONE (15:12)
[2021-01-10] MEDS ORDERED: PROPOFOL IV EMULSION 10 MG/ML 20 ML VIAL IV ONE (15:12)
[2021-01-10] MEDS ORDERED: ONDANSETRON INJ 2 MG/ML 2 ML VIAL ONE (15:12)
[2021-01-10] MEDS ORDERED: LIDOCAINE 2% 2 ML VIAL/AMP(20MG/ML) INFIL ONE (15:12)
[2021-01-10] MEDS ORDERED: ROCURONIUM BROMIDE 10 MG/ML 5 ML VIAL IV ONE ×2 (15:12→15:34)
[2021-01-10] MEDS ORDERED: ePHEDrine sulfate 50 MG/ML SYR ONE (15:38)
--- NOTE | 2021-01-10 15:58 | GI REPORT ---
Patient Name: Mary Nguyen Procedure Date: 01/10/2021 2:06 PM Date of : 1960 Admit Type: Inpatient Age: 60 Gender: Female Attending MD: Mela Ascencio DO Procedure: ERCP Providers: Mela Ascencio DO Referring MD: Rafa Fowler Indications: Abdominal pain of suspected biliary origin, For therapy of bile duct stone(s), Elevated liver enzymes Medicines: General Anesthesia Complications: No immediate complications. Estimated blood loss: Minimal. Estimated Blood Loss: Estimated blood loss was minimal. Procedure: Pre-Anesthesia Assessment: - Prior to the procedure, a History and Physical was performed, and patient medications, allergies and sensitivities were reviewed. The patient's tolerance of previous anesthesia was reviewed. - The risks and benefits of the procedure and the sedation options and risks were discussed with the patient. All questions were answered and informed consent was obtained. - Patient identification and proposed procedure were verified prior to the procedure by the physician, the nurse and the guest relations representative. The procedure was verified in the procedure room. - Pre-procedure physical examination revealed no contraindications to sedation. - ASA Grade Assessment: III - A patient with severe systemic disease. - After reviewing the risks and benefits, the patient was deemed in satisfactory condition to undergo the procedure. - The anesthesia plan was to use general anesthesia. - Immediately prior to administration of medications, the patient was re-assessed for adequacy to receive sedatives. - The heart rate, respiratory rate, oxygen saturations, blood pressure, adequacy of pulmonary ventilation, and response to care were monitored throughout the procedure. - The physical status of the patient was re-assessed after the procedure. After obtaining informed consent, the scope was passed under direct vision. Throughout the procedure, the patient's blood pressure, pulse, and oxygen saturations were monitored continuously. The Scope was introduced through the mouth, and advanced to the duodenum and used to cannulate the bile duct. The ERCP was accomplished without difficulty. The patient tolerated the procedure well. Findings: The ballet dancer film was normal. The esophagus was successfully intubated under direct vision without detailed examination of the pharynx, larynx, and associated structures, and upper GI tract. The upper GI tract was grossly normal. The major papilla was congested. The bile duct was deeply cannulated with the short-nosed traction sphincterotome and 0.035 in Acrobat 2 angled guidewire. Contrast was injected. I personally interpreted the bile duct images. Contrast extended to the entire biliary tree. The lower third of the main bile duct contained a single segmental stenosis 10 mm in length. The lower third of the main bile duct and middle third of the main bile duct contained filling defect(s) thought to be a stone and sludge. Biliary sphincterotomy was made with a monofilament Fusion OMNI sphincterotome using ERBE electrocautery. Moderate bleeding from the sphincterotomy stopped within 5 minutes. The lower third of the main bile duct was successfully dilated with a 4 mm balloon and an 8 mm balloon dilator. The biliary tree was swept with an 11.5 mm balloon starting at the lower third of the main duct, due to impacted stone material the extraction balloon could no be passed to the upper duct. After numerous attempts and use of several different dilation balloons the bile duct was controlled with a 7 Fr stent (see below). A few pale stones and dark bile were removed. A few stones remained on cholangiogram. One 7 Fr by 9 cm biliary stent with a single external flap and a single internal flap was placed 8.5 cm into the common bile duct. Bile flowed through the stent. The stent was in good position. The endoscope was withdrawn from the patient. Indomethacin 100 mg was given via suppository to decrease the risk of post-ERCP pancreatitis (PEP). Impression: - The major papilla appeared congested. - A single segmental biliary stricture was found in the lower third of the main bile duct. The stricture was inflammatory. - Choledocholithiasis was found. Partial removal was accomplished with biliary sphincterotomy; a stent was inserted. - One biliary stent was placed into the common bile duct. - Indomethacin given to decrease risk of post-ERCP pancreatitis. Recommendation: - Avoid aspirin and nonsteroidal anti-inflammatory medicines for 1 week. - Use broad spectrum antibiotics for 10 days. - cholecystectomy as planned with Dr. Acevedo. - Repeat ERCP in 4 weeks to remove stent and reattempt gallstone extraction. Mela Ascencio D.O. Mela Ascencio DO 01/10/2021 3:58:13 PM This report has been signed electronically. Note Initiated On: 01/10/2021 2:06 PM Number of Addenda: 0 I attest to the content of the Intraoperative Record and orders documented therein, exceptions below {[id number]}
--- NOTE | 2021-01-10 15:59 | Post Operative Brief Note ---
Immediate Post Op Note v1 Date of Surgery January 10, 2021 Pre & Post Diagnosis Operation Date: 01/10/21 09:00 Pre-Op Diagnosis: COMMON BILE DUCT STONES, GALLSTONE PANCREATITIS Post-Op Diagnosis: gallstone pancreatitis I identified the patient and participated in the time-out.: Yes Procedure Operation Date: 01/10/21 09:00 Actual Procedures p Endoscopic Retrograde Cholangiopancreatogram, sphincterotomy, gallstone extraction, stent placement(Not Applicable) - Mela Ascencio DO Surgeon Mela Ascencio DO Porcelain Finish Sprayer none Estimated Blood Loss 15 Findings Consistent with Post-Op Diagnosis
--- NOTE | 2021-01-10 16:02 | Communication Note ---
Date of Service: January 10, 2021 The patient underwent ERCP this afternoon for impacted CBD stones. The procedure was difficult due to gallstone impaction, several removed today in addition to placement of a biliary stent to control the CBD. We will plan for a repeat ERCP in 4 weeks to remove the biliary stent and attempt to remove any remaining CBD stones. Recs: continue IV hydration avoid nsaids for 1 week 10 day course of antibiotics please.
--- NOTE | 2021-01-10 16:04 | Fluoroscopy Report ---
[place] ERCP biliary ductal CLINICAL HISTORY: Choledocholithiasis.ERCP. COMPARISON STUDY: MRCP 01/10/2021. FLUOROSCOPY TIME: 3 minutes and 28 seconds. FINDINGS: 10 fluoroscopic spot images of the right upper quadrant were submitted. The ampulla was can nulated and contrast injected into the common bile duct. A balloon sweep was performed. IMPRESSION: Fluoroscopy provided for ERCP. ACT 112: Negative or not required by law. Electronically signed by: Jermaine Presley M.D. 01/10/2021 4:02 PM
[2021-01-10] MEDS ORDERED: LABETALOL HCL IV 5 MG/ML 20ML IV ONE (16:14)
[2021-01-10] MEDS ORDERED: FLOSEAL HEMOSTATIC MATRIX 10ML TOP ONE (16:23)
[2021-01-10] MEDS ORDERED: SUGAMMADEX SODIUM 200 MG/2 ML VIAL IV ONE (16:30)
[2021-01-10] MEDS ORDERED: ACETAMINOPHEN 1,000 MG/100 ML VIAL IV ONE (16:34)
--- NOTE | 2021-01-10 16:34 | Post Operative Brief Note ---
[facility] Immediate Post Op with CF Date of Surgery January 10, 2021 Pre & Post Diagnosis Operation Date: 01/10/21 09:00 Pre-Op Diagnosis: Common Bile Duct Stones, Gallstone Pancreatitis Post-Op Diagnosis: Common Bile Duct Stones, Gallstone Pancreatitis Acute and chronic cholecystitis with adhesions I identified the patient and participated in the time-out.: Yes Procedure Operation Date: 01/10/21 09:00 Actual Procedures p Endoscopic Retrograde Cholangiopancreatogram, sphincterotomy, gallstone extraction, stent placement(Not Applicable) - DO danielle Conley Laparoscopic Cholecystectomy(Not Applicable) - Rafa Acevedo MD, FACS Lysis of adhesions Surgeon Rafa Acevedo MD, FACS Veterinary Poultry Inspector none Estimated Blood Loss 30 Findings Consistent with Post-Op Diagnosis Patient had severe acute cholecystitis with exudate and evidence of chronic adhesions Specimens Specimen Description: endoscopy specimens handled by endo staff A. gallbladder and contents Drains Bienvenido-Billings Drain (15 fr round)
[2021-01-10] MEDS: PIPERACILLIN/TAZOBACTAM 3.375 GM in DEXTROSE 5% 100 ML IV SCH (18:33)
--- NOTE | 2021-01-10 18:33 | Anesthesiology Progress Note ---
Date of Service January 10, 2021 Anesthesia Post Procedure Vital Signs Vital Signs: Temp Pulse Pulse Resp BP Pulse Ox 01/10/21 17:40 59 L 22 125/66 96 01/10/21 17:30 36.4 C L 58 L 19 124/65 96 01/10/21 17:20 62 16 113/63 93 01/10/21 17:10 64 16 114/64 98 01/10/21 17:00 60 13 97/53 L 99 01/10/21 16:50 59 L 13 94/51 L 98 01/10/21 16:46 36.5 C 62 12 91/50 L 96 01/10/21 14:09 37.3 C 81 18 124/57 L 96 01/10/21 11:14 37.0 C 52 L 20 106/69 96 01/10/21 07:44 36.5 C 55 L 20 107/70 97 01/10/21 01:06 16 153/84 H 99 01/10/21 00:48 36.8 C 54 L 18 145/80 H 97 01/09/21 23:21 54 L 16 127/69 98 01/09/21 22:12 56 L 19 134/72 99 01/09/21 21:18 57 L 17 146/89 H 100 Pain Intensity Abdomen: Pain Intensity: 10 Transfer of Care Handoff Completed per policy Notes Mental Status: alert / awake / arousable and participated in evaluation Patient Amnestic to Procedure: Yes Nausea / Vomiting: adequately controlled Pain: adequately controlled Airway Patency, RR, SpO2: stable & adequate BP & HR: stable & adequate Hydration State: stable & adequate Anesthetic Complications: no major complications apparent and Pt Satisfied with anesthetic care
[2021-01-10] MEDS ORDERED: HYDROmorphone INJ 1 MG/ML SYRINGE IV PRN (19:17)
[2021-01-10] MEDS ORDERED: HYDROmorphone INJ 0.5 MG/0.5 ML SYR IV PRN (19:17)
[2021-01-10] MEDS ORDERED: PIPERACILLIN/TAZOBACTAM 3.375 GM in DEXTROSE 5% 100 ML IV SCH (19:17)
[2021-01-10] MEDS: ARIPiprazole 10 MG TAB PO SCH (20:43)
--- NOTE | 2021-01-10 21:44 | Operative Report (OR) ---
DATE OF OPERATION: 01/10/2021 NAME OF OPERATION: Laparoscopic cholecystectomy with lysis of adhesions. PREOPERATIVE DIAGNOSIS: Gallstone pancreatitis. POSTOPERATIVE DIAGNOSES: Gallstone pancreatitis with severe acute and chronic cholecystitis with adh esions. STAFF SURGEON: Rafa Acevedo MD. CUSTOMER SERVICE MANAGER: Vinay Haider PA-C. ANESTHESIA: General. DESCRIPTION OF PROCEDURE: The patient was brought in the operating room and placed on the operating table in supine position. She initially underwent ERCP and then we prepped her abdomen for laparosco pic cholecystectomy. A 0.5% plain Marcaine was used to anesthetize all incisions. Incision was made above the umbilicus, carrying dissection down to the fascia, placing a Veress needle producing pneum operitoneum, placing an 11 mm port at this level. My assistant professor of radiology helped with prepping, draping, remova l of the gallbladder and closure of the wounds. At this point, under visualization, three 5 mm ports were placed, one cephalad and two laterally. Ga llbladder was severely edematous, thickened. There was an exudate with some bilious staining. I att empted to grasp the gallbladder; it did rupture with spillage of bile. We did aspirate and irrigate this bile. Gallbladder was retracted. Dissection carried out at the gentry hepatis showing severe ed kaela in that area, identifying the cystic duct and cystic artery. These were clipped and transected. Gallbladder was then dissected away from the liver bed. There was severe edema. There was some mil d oozing from the liver bed. This was controlled with cautery. Gallbladder was placed in an Endobag. FloSeal was placed into the subhepatic space. A 15 round Jr son-Billings drain placed through the lateral 5 mm port site into the subhepatic space, secured using 3- 0 nylon suture. The gallbladder was in the Endobag, it was removed through the umbilical site. All ports were then removed. The umbilical fascia closed using 0 Vicryl suture. The skin was reapproxim ated at all sites using 4-0 nylon suture. Dressing applied. The patient was transferred to recovery room in stable condition. Job ID: [id number]
[2021-01-11] MEDS: PIPERACILLIN/TAZOBACTAM 3.375 GM in DEXTROSE 5% 100 ML IV SCH ×3 (00:28→09:08)
--- NOTE | 2021-01-11 06:50 | Surgery Progress Note ---
Date of Service January 11, 2021 Assessment & Plan (1) Gallstone pancreatitis: (2) S/P laparoscopic cholecystectomy: Plan: Patient with relatively significant acute and chronic cholecystitis with severe edema Aundrea cholecystic exudate Currently has ROSA drain in place with serosanguineous drainage/mostly serous Status post ERCPstent placement Patient has minimal pain and has only taken acetaminophen Awake and alert this morning Currently on clear liquids-medical/GI to determine when patient can be discharged in future plan Leave drain for now Admission and Anticipated Discharge Date Admission Date: January 09, 2021 Results & Data ([facility]) Vital Signs (Past 12 Hours) Vital Signs Temp Pulse Resp BP Pulse Ox 01/11/21 03:23 36.7 C 48 L 16 104/62 95 01/10/21 21:19 95 01/10/21 19:55 36.7 C 55 L 18 97/62 L 97 PG Care Time/CCT Total # of Minutes Spent Total Time Spent with Patient: Total time spent is greater than 50% in coordination of care (as documented) at patient's floor/unit and/or counseling patient: Coding Level of Care Code None Diagnoses Gallstone pancreatitis K85.10 S/P laparoscopic cholecystectomy Z90.49
[2021-01-11 08:28] LABS: Hematocrit (blood only) 27.5 % (37-47); Hemoglobin 9.4 g/dL (12.0-16.0); Immature Granulocytes # (auto) 0.02 K/uL (0.00-0.02); Immature Granulocytes % (auto) 0.3 %; Lymphocytes # (auto) 0.32 K/uL (1.2-3.4); Lymphocytes % (auto) 4.5 %; Mean Corpuscular Hemoglobin 30.4 pg (25-34); Mean Corpuscular Hgb Conc 34.2 g/dL (32-36); Mean Platelet Volume 9.1 fL (7.4-10.4); Monocytes # (auto) 0.59 K/uL (0.11-0.59); Monocytes % (auto) 8.3 %; Neutrophils # (auto) 6.15 K/uL (1.4-6.5); Neutrophils % (auto) 86.9 %; Platelet Count 195 K/uL (130-400); RDW Coefficient of Variation 14.4 % (11.5-14.5); RDW Standard Deviation 47.1 fL (36.4-46.3); Red Blood Count 3.09 M/uL (4.2-5.4); White Blood Count 7.08 K/uL (4.8-10.8)
[2021-01-11] MEDS: LACTATED RINGER'S 1,000 ML IV SCH (08:28)
[2021-01-11] MEDS: HEPARIN SOD 5,000 UNIT/0.5 ML VIAL SQ SCH ×2 (08:29→21:56)
[2021-01-11] MEDS: ANASTROZOLE 1 MG TAB PO SCH (08:30)
[2021-01-11] MEDS: ESCITALOPRAM OXALATE 10 MG TAB PO SCH (08:31)
[2021-01-11] MEDS: lamoTRIgine 25 MG TAB PO SCH (08:31)
[2021-01-11 08:46] LABS: Albumin Level 2.5 gm/dl (3.4-5.0); BUN Creatinine Ratio 8.4 (10-20); Bilirubin Direct 0.2 mg/dl (0-0.2); Calcium 7.1 mg/dl (8.5-10.1); Creatinine Clr Calc Pharmacy 79.3 ml/min; Est GFR (Non-African American) 80.2 ml/min; Magnesium 2.3 mg/dl (1.8-2.4); Potassium 4.1 mmol/L (3.5-5.1)
[2021-01-11 09:26] LABS: Albumin Globulin Ratio 0.9 (0.9-2); Bilirubin,Total 0.8 mg/dl (0.2-1); Globulin 2.8 gm/dl (2.5-4.0); Phosphorus 1.4 mg/dl (2.5-4.9); Total Protein 5.4 gm/dl (6.4-8.2)
[2021-01-11] MEDS ORDERED: POTASSIUM PHOS 3 MMOL/1 ML INFUSION IV STA (09:29)
[2021-01-11] MEDS ORDERED: POTASSIUM PHOSPHATE 15 MMOL in SODIUM CHLORIDE 0.9% 250 ML IV ONE (10:00)
--- NOTE | 2021-01-11 10:03 | Gastroenterology Progress Note ---
Date of Service January 11, 2021 Assessment & Plan (1) Pancreatitis: (2) Choledocholithiasis: Plan: Pt is a 60 y/o female w hx of metastatic breast ca s/p R mastectomy, XRT, chemo therapy, currently admitted for gallstone pancreatitis. She is s/p ERCP w choledocholithiasis removal, biliary sphincterectomy, biliary stent placement followed by lap cholecystectomy on 01/10/21. Clinically doing well, LFTs decreasing. Noted drop in blood ct but w/o s/s of GI bleed. - Advance diet as tolerated - DC IVF - Avoid ASA and NSAIDs 1 week after sphincterectomy - Antibx coverage (Cipro) x 10 days - Repeat ERCP in 4 weeks to remove stent and reattempt gallstone extraction. - Symptomatic management with antiemetics and analgesics prn - GI to sign off; pls recall prn Admission and Anticipated Discharge Date Admission Date: January 09, 2021 Supervising Physician Co-Signing Physician Notes Patient feeling better post ercp and lap jay. Agree with further plan of care. Subjective Pt reports feeling well, no longer having abd pain, denies fever, chills, CP, SOB overnight. She hasn't passed flatus or BMs. Its eating CL breakfast w/o n/v. Review of Systems Review of Systems: All systems reviewed & are unremarkable except as noted in HPI & below Physical Exam Constitutional: WD/WN, vitals as above well groomed, cooperative and comfortable Eyes: PERRL, conjunctivae normal, anicteric sclerae ENMT: external ear and nose normal, oropharynx normal Respiratory: normal respiratory effort, lungs clear to auscultation Cardiovascular: RRR, no murmur, no edema Gastrointestinal (Abdomen): Abd surgical wounds covered with dressing CDI. ROSA drain to RUQ area w scant amt of sangenous fluid Skin: no rashes, warm and dry no jaundice Psychiatric: A+Ox3, euthymic affect Lymphatic: no lymphedema Results & Data ([facility]) Vital Signs (Past 12 Hours) Vital Signs Temp Pulse Resp BP Pulse Ox 01/11/21 07:30 36.6 C 45 L 17 110/68 95 01/11/21 03:23 36.7 C 48 L 16 104/62 95 (1) Pancreatitis Acute pancreatitis complication: unspecified Chronicity: acute Pancreatitis type: unspecified pancreatitis type Qualified Code(s): K85.90 - Acute pancreatitis without necrosis or infection, unspecified
[2021-01-11 14:27] LABS: Hematocrit (blood only) 25.4 % (37-47); Hemoglobin 8.8 g/dL (12.0-16.0)
[2021-01-11] MEDS: metroNIDAZOLE 500 MG TAB PO SCH ×2 (14:30→21:56)
--- NOTE | 2021-01-11 15:38 | Hospitalist Progress Note ---
Date of Service January 11, 2021 Assessment & Plan (1) Pancreatitis: (2) Transaminitis: (3) Metastatic breast cancer: (4) HTN (hypertension): (5) Mood disorder: Plan: This is a 60yo F with a PMH of metastatic breast cancer, hypertension, mood disorder and other medical problems listed below who presents with abdominal pain that began yesterday and was found to have pancreatitis and transaminitis. Choledocholithiasis s/p ERCP w choledocholithiasis removal, biliary sphincterectomy, biliary stent placement followed by lap cholecystectomy on 01/10/21 Liver LFTs Appreciate GI and general surgery input. Advance diet as tolerated. Plan for repeat ERCP in 4 weeks for stent removal and gallstone extraction. Continue Cipro/Flagyl. Antiemetics/analgesic as needed. Oxycodone/morphine. Continue current PD medications including Abilify, Arimidex, Lamictal and Lexapro. Admission and Anticipated Discharge Date Admission Date: January 09, 2021 Subjective Doing okay this morning. Have been tolerating clear liquid diet. Does report abdominal incisional discomfort. Denies any nausea or vomiting. Denies any eric st pain or shortness of breath. The review of system is negative Review of Systems Review of Systems: All systems reviewed & are unremarkable except as noted in HPI & below Physical Exam Physical Exam: General: A&Ox3 HENT: NCAT, MMM, EOMI Eyes: PERRLA Neck: Supple, normal range of motion CVS: normal rate and rhythm Resp: b/l good breath sounds Abdomen: Soft, incisional tenderness appreciated, ROSA drain in place Extremities: absence of any edema Neuro: face symmetric, strength grossly equal, no focal deficit Skin: no rashes/lesions/errythema MSK: no joint swelling/erythema Results & Data Results & Data ([facility]) Vital Signs (Past 12 Hours) Vital Signs Temp Pulse Resp BP Pulse Ox 01/11/21 15:07 36.7 C 48 L 18 104/64 94 01/11/21 07:30 36.6 C 45 L 17 110/68 95 (1) Pancreatitis Acute pancreatitis complication: unspecified Chronicity: acute Pancreatitis type: unspecified pancreatitis type Qualified Code(s): K85.90 - Acute pancreatitis without necrosis or infection, unspecified
[2021-01-11] MEDS: CIPROFLOXACIN 500 MG TAB PO SCH (21:56)
[2021-01-11] MEDS: ARIPiprazole 10 MG TAB PO SCH (21:56)
[2021-01-12] MEDS: metroNIDAZOLE 500 MG TAB PO SCH ×3 (04:11→20:23)
[2021-01-12 06:13] LABS: Basophils # (auto) 0.01 K/uL (0-0.2); Basophils % (auto) 0.2 %; Eosinophils # (auto) 0.08 K/uL (0-0.5); Eosinophils % (auto) 1.6 %; Hemoglobin 8.6 g/dL (12.0-16.0); Immature Granulocytes # (auto) 0.01 K/uL (0.00-0.02); Immature Granulocytes % (auto) 0.2 %; Lymphocytes # (auto) 0.77 K/uL (1.2-3.4); Lymphocytes % (auto) 15.1 %; Mean Corpuscular Hemoglobin 30.4 pg (25-34); Mean Corpuscular Hgb Conc 33.1 g/dL (32-36); Mean Corpuscular Volume 91.9 fL (80-100); Mean Platelet Volume 9.5 fL (7.4-10.4); Monocytes # (auto) 0.62 K/uL (0.11-0.59); Monocytes % (auto) 12.1 %; Neutrophils # (auto) 3.62 K/uL (1.4-6.5); Neutrophils % (auto) 70.8 %; Platelet Count 201 K/uL (130-400); RDW Coefficient of Variation 14.9 % (11.5-14.5); RDW Standard Deviation 49.9 fL (36.4-46.3); Red Blood Count 2.83 M/uL (4.2-5.4); White Blood Count 5.11 K/uL (4.8-10.8)
[2021-01-12 06:44] LABS: BUN Creatinine Ratio 7.4 (10-20); Calcium 6.8 mg/dl (8.5-10.1); Creatinine Clr Calc Pharmacy 89.5 ml/min; Est GFR (African American) 107.6 ml/min; Est GFR (Non-African American) 92.9 ml/min; Potassium 3.8 mmol/L (3.5-5.1)
--- NOTE | 2021-01-12 06:54 | Surgery Progress Note ---
Date of Service January 12, 2021 Assessment & Plan (1) S/P laparoscopic cholecystectomy: Plan: Patient awake and alert Some mild abdominal pain H&H is stable Drain with minimal serous output-we will order to be removed Discharge home when medically stable Surgical instructions and EMR See in office next week Admission and Anticipated Discharge Date Admission Date: January 09, 2021 Results & Data ([facility]) Vital Signs (Past 12 Hours) Vital Signs Temp Pulse Resp BP Pulse Ox 01/11/21 22:27 36.8 C 60 16 103/64 93 PG Care Time/CCT Total # of Minutes Spent Total Time Spent with Patient: Total time spent is greater than 50% in coordination of care (as documented) at patient's floor/unit and/or counseling patient: Coding Level of Care Code None Diagnoses S/P laparoscopic cholecystectomy Z90.49
[2021-01-12] MEDS: ONDANSETRON INJ 2 MG/ML 2 ML VIAL IV PRN ×2 (09:06→18:42)
[2021-01-12] MEDS: CIPROFLOXACIN 500 MG TAB PO SCH ×2 (09:06→20:23)
[2021-01-12] MEDS: lamoTRIgine 25 MG TAB PO SCH (09:06)
[2021-01-12] MEDS: HEPARIN SOD 5,000 UNIT/0.5 ML VIAL SQ SCH ×2 (09:07→20:23)
[2021-01-12] MEDS: ANASTROZOLE 1 MG TAB PO SCH (09:07)
[2021-01-12] MEDS: ESCITALOPRAM OXALATE 10 MG TAB PO SCH (09:07)
[2021-01-12] MEDS ORDERED: CALCIUM GLUCONATE 10% 2,000 MG in SODIUM CHLORIDE 0.9% 50 ML IV ONE (12:00)
[2021-01-12] MEDS ORDERED: SODIUM PHOSPHATE 3 MMOL/1 ML INFUSION IV STA (13:16)
[2021-01-12] MEDS ORDERED: SODIUM PHOSPHATE 30 MMOL in SODIUM CHLORIDE 0.9% 500 ML IV ONE (13:30)
--- NOTE | 2021-01-12 16:58 | Hospitalist Progress Note ---
Date of Service January 12, 2021 Assessment & Plan (1) Gallstone pancreatitis: Plan: resolved--tolerating PO and recovering well postoperatively. Plan for repeat ERCP in 4 weeks for stent removal Continue Cipro/Flagyl-total 10 days. Supportive care PRN (2) Choledocholithiasis: Plan: s/p ERCP, plan as above. (3) Hypophosphatemia: Plan: replaced yesterday but still low. Low stores possibly related to recent starvation from two weeks of not eating s/p multiteeth extraction followed by acute pancreatitis. Replace and repeat level in am. (4) Hypocalcemia: Plan: 2 grams given today. Repeat level in am. (5) Transaminitis: Plan: 2/2 acute pancreatitis. improving post treatment. (6) Mood disorder: Plan: cont meds per home regimen. (7) Metastatic breast cancer: Plan: cont anastrozole per home regimen. (8) DVT prophylaxis: Plan: heparin Full Dispo-to home in am pending repeat electrolytes. May need additional replacement in am and then plan for home. Maryan Acuna DO [place] Hospitalist Admission and Anticipated Discharge Date Admission Date: January 09, 2021 Subjective 60 yo F presented with abdominal pain from acute pancreatitis 2/2 choledocholithiasis s/p ERCP. She also underwent a lap jay yesterday. She reports not eating well prior to onset of pancreatitis as she recently required extraction of multiple teeth 2/2 dental infection and was on 2 weeks of antibiotics. Persistently low phosphorus today. Calcium is also low. Patient denies feeling poorly. Reports abdomen is "tight" as expected in post-op state. She is ambulating independently to the bathroom. She denies any issues tolerating PO. Afebrile. Denies CP or SOB. Review of Systems Review of Systems: At least ten systems were reviewed and negative except as indicated in HPI above. Physical Exam Physical Exam: CONSTITUTIONAL: WNWD, vitals as above, generally well- appearing, NAD EYES: normal conjunctivae, no scleral icterus ENT: external ear and nose normal, MMM NECK: trachea midline RESPIRATORY: clear to auscultation bilaterally, no crackles, rales or wheezes, normal respiratory effort CARDIOVASCULAR: regular rate and rhythm, S1 and 2 heard without murmurs, gallops or rubs, no JVD, no peripheral edema CHEST: inspection of chest was normal GASTROINTESTINAL: soft, nontender, ND, no guarding, multiple laparoscopic incision sites are covered with dressings that are c/d/i MUSCULOSKELETAL: strength 5/5 throughout, head is normocephalic and atraumatic SKIN: warm and dry NEUROLOGIC: CN 2-12 grossly intact, normal cognition, normal speech, no tremor PSYCHIATRIC: alert cooperative and oriented to person, place and time. Results & Data Results & Data ([facility]) Vital Signs (Past 12 Hours) Vital Signs Temp Pulse Resp BP Pulse Ox 01/12/21 16:38 37.1 C 58 L 16 110/64 95 01/12/21 07:46 36.7 C 70 16 113/75 99 Laboratory Results Short CBC 01/12/21 Range/Units 05:25 WBC 5.11 (4.8-10.8) K/uL Hgb 8.6 L (12.0-16.0) g/dL Hct 26.0 L (37-47) % Plt Count 201 (130-400) K/uL BMP 01/12/21 05:25 Sodium 145 Potassium 3.8 Chloride 117 H Carbon Dioxide 23 BUN 5 L Creatinine 0.70 Glucose 91 Calcium 6.8 L Medications Administered Current Inpatient Medications Acetaminophen (Acetaminophen 325 Mg Tab) 325 mg PO Q6H PRN PRN Reason: Mild Pain Stop: 02/08/21 22:49 Last Admin: 01/10/21 20:45 Dose: 325 mg Documented by: Anastrozole (Anastrozole 1 Mg Tab) 1 mg PO QAM BREA Stop: 02/09/21 08:59 Last Admin: 01/12/21 09:07 Dose: 1 mg Documented by: Aripiprazole (Aripiprazole 10 Mg Tab) 10 mg PO HS BREA Stop: 02/09/21 20:59 Last Admin: 01/11/21 21:56 Dose: 10 mg Documented by: Ciprofloxacin (Ciprofloxacin 500 Mg Tab) 500 mg PO BID BREA Stop: 01/21/21 20:59 Last Admin: 01/12/21 09:06 Dose: 500 mg Documented by: Escitalopram Oxalate (Escitalopram Oxalate 10 Mg Tab) 5 mg PO QAM BREA Stop: 02/09/21 08:59 Last Admin: 01/12/21 09:07 Dose: 5 mg Documented by: Heparin Sodium (Porcine) (Heparin Sod 5,000 Unit/0.5 Ml Vial) 5,000 units SQ Q12 BREA Stop: 02/10/21 08:59 Last Admin: 01/12/21 09:07 Dose: 5,000 units Documented by: Hydromorphone HCl (Hydromorphone Inj 0.5 Mg/0.5 Ml Syr) 0.5 mg IV Q3HWA PRN PRN Reason: Pain rating 4-6 Stop: 01/24/21 19:16 Hydromorphone HCl (Hydromorphone Inj 1 Mg/Ml Syringe) 1 mg IV Q3HWA PRN PRN Reason: Severe Pain (7-10) Stop: 01/24/21 19:16 Last Admin: 01/12/21 04:09 Dose: 1 mg Documented by: Promethazine HCl 12.5 mg/ (Sodium Chloride) 50.5 mls @ 202 mls/hr IV Q6H PRN PRN Reason: Nausea And Vomiting Stop: 02/08/21 22:49 Lorazepam (Ativan) 0.5 mg in 1 mls @ 1 mls/min IV Q4H PRN PRN Reason: Anxiety/Agitation Stop: 02/09/21 00:22 Sodium Phosphate 30 mmol/ (Sodium Chloride) 510 mls @ 88 mls/hr IV ONE ONE Stop: 01/12/21 19:17 Last Admin: 01/12/21 14:47 Dose: 88 mls/hr Documented by: Lamotrigine (Lamotrigine 25 Mg Tab) 50 mg PO DAILY [facility] Stop: 02/09/21 08:59 Last Admin: 01/12/21 09:06 Dose: 50 mg Documented by: Metronidazole (Metronidazole 500 Mg Tab) 500 mg PO Q8H [facility] Stop: 01/21/21 13:59 Last Admin: 01/12/21 12:55 Dose: 500 mg Documented by: Ondansetron HCl (Ondansetron Inj 2 Mg/Ml 2 Ml Vial) 4 mg IV 4XDQ4H PRN PRN Reason: Nausea Stop: 02/09/21 19:16 Last Admin: 01/12/21 09:06 Dose: 4 mg Documented by: Oxycodone HCl (Oxycodone Hcl Ir 5 Mg Tab (Immediate Release)) 5 - 10 mg PO QID PRN PRN Reason: Pain Stop: 01/23/21 22:49 Last Admin: 01/11/21 09:14 Dose: 5 mg Documented by:
[2021-01-12] MEDS: ARIPiprazole 10 MG TAB PO SCH (20:22)
[2021-01-13] MEDS: metroNIDAZOLE 500 MG TAB PO SCH ×2 (05:42→14:59)
[2021-01-13 05:50] LABS: Hematocrit (blood only) 28.2 % (37-47); Hemoglobin 9.3 g/dL (12.0-16.0); Mean Corpuscular Hemoglobin 29.6 pg (25-34); Mean Corpuscular Volume 89.8 fL (80-100); Mean Platelet Volume 9.3 fL (7.4-10.4); Platelet Count 220 K/uL (130-400); RDW Coefficient of Variation 15.2 % (11.5-14.5); RDW Standard Deviation 49.8 fL (36.4-46.3); Red Blood Count 3.14 M/uL (4.2-5.4); White Blood Count 4.15 K/uL (4.8-10.8)
[2021-01-13 06:07] LABS: Albumin Level 2.3 gm/dl (3.4-5.0); BUN Creatinine Ratio 4.3 (10-20); Calcium 7.4 mg/dl (8.5-10.1); Creatinine Clr Calc Pharmacy 102.7 ml/min; Est GFR (African American) 112.6 ml/min; Est GFR (Non-African American) 97.2 ml/min; Magnesium 2.3 mg/dl (1.8-2.4); Potassium 3.6 mmol/L (3.5-5.1)
[2021-01-13 06:11] LABS: Albumin Globulin Ratio 0.8 (0.9-2); Bilirubin,Total 0.4 mg/dl (0.2-1); Globulin 2.9 gm/dl (2.5-4.0); Phosphorus 1.8 mg/dl (2.5-4.9); Total Protein 5.2 gm/dl (6.4-8.2)
--- NOTE | 2021-01-13 08:04 | Surgery Progress Note ---
Date of Service January 13, 2021 Assessment & Plan (1) S/P laparoscopic cholecystectomy: Plan: doing well from our standpoint may go home when ok with IM.... phos level better but still low. defer to IM Admission and Anticipated Discharge Date Admission Date: January 09, 2021 Subjective pt seen. feeling well. would like to go home. no further nausea. Physical Exam Physical Exam: alert. nad. abd: soft. appropriate tenderness Results & Data ([facility]) Vital Signs (Past 12 Hours) Vital Signs Temp Pulse Resp BP Pulse Ox 01/13/21 07:35 36.8 C 53 L 16 127/73 94 01/12/21 22:28 37.0 C 54 L 19 112/69 93 PG Care Time/CCT Total # of Minutes Spent Total Time Spent with Patient: Total time spent is greater than 50% in coordination of care (as documented) at patient's floor/unit and/or counseling patient: Coding Level of Care Code None Diagnoses S/P laparoscopic cholecystectomy Z90.49
[2021-01-13] MEDS ORDERED: SODIUM PHOSPHATE 3 MMOL/1 ML 5 ML VIAL IV ONE (09:29)
[2021-01-13] MEDS ORDERED: SODIUM PHOSPHATE 30 MMOL in SODIUM CHLORIDE 0.9% 500 ML IV ONE (10:15)
[2021-01-13] MEDS: lamoTRIgine 25 MG TAB PO SCH (10:29)
[2021-01-13] MEDS: CIPROFLOXACIN 500 MG TAB PO SCH (10:29)
[2021-01-13] MEDS: ESCITALOPRAM OXALATE 10 MG TAB PO SCH (10:29)
[2021-01-13] MEDS: ANASTROZOLE 1 MG TAB PO SCH (10:30)
[2021-01-13] MEDS: HEPARIN SOD 5,000 UNIT/0.5 ML VIAL SQ SCH (10:30)
[2021-01-13] MEDS ORDERED: GLYCERIN ADULT 12 SUPP/BOX SUPP PR ONE (14:04)
[2021-01-13] MEDS ORDERED: POLYETHYLENE (MIRALAX) 17 GM PACK PO PRN (14:05)
--- NOTE | 2021-01-13 14:41 | Discharge Summary ---
Date of Service January 13, 2021 Admission HPI Per Admitting Provider This is a 60yo F with a PMH of metastatic breast cancer (s/p R mastectomy on herceptin Q3 weeks, anastrozole daily, s/p XRT to brain), hypertension, mood disorder and other medical problems listed below who presents with abdominal pain that began yesterday. Pain started right under rib cage and is described as sharp and constant. Has since radiated lower and epigastrium as well as over to right upper quadrant. Pain is worse with movement. Took an oxycodone last night with some relief. Pain is associated with decreased appetite, nausea and dry heaves. + Recent constipation. Denies any alcohol use in the past month. No history of pancreatitis. Non-smoker. Still has gallbladder. No fever, chills, lightheadedness, headache, chest pain, shortness of breath, dysuria or diarrhea. In ED, patient is hemodynamically stable. No leukocytosis, electrolytes wnl, tbili 1.1, AST 392, ALT 299, alk phos 293, lipase 2,037. Covid PCR pending. RUQ imaging pending. Principal Diagnosis gallstone pancreatitis choledocholithiasis s/p ERCP hypophosphatemia transaminitis 2/2 biliary obstruction Discharge Exam CONSTITUTIONAL: WNWD, vitals stable, generally well-appearing, NAD EYES: normal conjunctivae, no scleral icterus ENT: external ear and nose normal, MMM NECK: trachea midline RESPIRATORY: clear to auscultation bilaterally, no crackles, rales or wheezes, normal respiratory effort CARDIOVASCULAR: regular rate and rhythm, S1 and 2 heard without murmurs, gallops or rubs, no JVD, no peripheral edema CHEST: inspection of chest was normal GASTROINTESTINAL: soft, nontender, ND, no guarding, multiple laparoscopic incision sites are covered with dressings that are c/d/i MUSCULOSKELETAL: strength 5/5 throughout, head is normocephalic and atraumatic SKIN: warm and dry NEUROLOGIC: CN 2-12 grossly intact, normal cognition, normal speech, no tremor PSYCHIATRIC: alert cooperative and oriented to person, place and time. Discharge Data Allergies Allergy/AdvReac Type Severity Reaction Status Date / Time latex Allergy Unknown BURNING,FLEX Verified 01/09/21 22:04 MATITIS Consultations 01/09/21 21:07 ED Decision to Admit Stat 01/10/21 00:23 Consult Gastroenterology Routine 01/10/21 09:40 Consult General Surgery Routine Procedures Performed Operation Date: 01/10/21 09:00 Actual Procedures p Endoscopic Retrograde Cholangiopancreatogram, sphincterotomy, gallstone extraction, stent placement(Not Applicable) - DO danielle Conley Laparoscopic Cholecystectomy(Not Applicable) - Rafa Acevedo MD, FACS Ordered Studies Laboratory Results WBC 4.15 K/uL (4.8-10.8) L 01/13/21 05:12 RBC 3.14 M/uL (4.2-5.4) L 01/13/21 05:12 Hgb 9.3 g/dL (12.0-16.0) L 01/13/21 05:12 Hct 28.2 % (37-47) L 01/13/21 05:12 MCV 89.8 fL (80-100) 01/13/21 05:12 MCH 29.6 pg (25-34) 01/13/21 05:12 MCHC 33.0 g/dL (32-36) 01/13/21 05:12 RDW Std Deviation 49.8 fL (36.4-46.3) H 01/13/21 05:12 RDW Coeff of Landon 15.2 % (11.5-14.5) H 01/13/21 05:12 Plt Count 220 K/uL (130-400) 01/13/21 05:12 MPV 9.3 fL (7.4-10.4) 01/13/21 05:12 Immature Gran % (Auto) 0.2 % 01/12/21 05:25 Neut % (Auto) 70.8 % 01/12/21 05:25 Lymph % (Auto) 15.1 % 01/12/21 05:25 [place] % (Auto) 12.1 % 01/12/21 05:25 Eos % (Auto) 1.6 % 01/12/21 05:25 Baso % (Auto) 0.2 % 01/12/21 05:25 Neut # (Auto) 3.62 K/uL (1.4-6.5) 01/12/21 05:25 Lymph # (Auto) 0.77 K/uL (1.2-3.4) L 01/12/21 05:25 [place] # (Auto) 0.62 K/uL (0.11-0.59) H 01/12/21 05:25 Eos # (Auto) 0.08 K/uL (0-0.5) 01/12/21 05:25 Baso # (Auto) 0.01 K/uL (0-0.2) 01/12/21 05:25 Immature Gran # (Auto) 0.01 K/uL (0.00-0.02) 01/12/21 05:25 PT 10.5 Seconds (9.0-12.0) 01/09/21 22:38 INR 1.0 (0.9-1.1) 01/09/21 22:38 Sodium 143 mmol/L (136-145) 01/13/21 05:12 Potassium 3.6 mmol/L (3.5-5.1) 01/13/21 05:12 Chloride 113 mmol/L (98-107) H 01/13/21 05:12 Carbon Dioxide 23 mmol/L (21-32) 01/13/21 05:12 Anion Gap 7.0 (3-11) 01/13/21 05:12 BUN 3 mg/dl (7-18) L 01/13/21 05:12 Creatinine 0.61 mg/dl (0.6-1.2) 01/13/21 05:12 Est Cr Clr Drug Dosing 102.7 ml/min 01/13/21 05:12 Est GFR ( Amer) 112.6 ml/min 01/13/21 05:12 Est GFR (Non-Af Amer) 97.2 ml/min 01/13/21 05:12 BUN/Creatinine Ratio 4.3 (10-20) L 01/13/21 05:12 Glucose 88 mg/dl (70-99) 01/13/21 05:12 Estimat Average Glucose 105 mg/dl 01/09/21 22:38 Hemoglobin A1c 5.3 % (4.5-5.6) 01/09/21 22:38 Calcium 7.4 mg/dl (8.5-10.1) L 01/13/21 05:12 Phosphorus 1.8 mg/dl (2.5-4.9) L 01/13/21 05:12 Magnesium 2.3 mg/dl (1.8-2.4) 01/13/21 05:12 Total Bilirubin 0.4 mg/dl (0.2-1) 01/13/21 05:12 Direct Bilirubin 0.2 mg/dl (0-0.2) 01/11/21 08:02 AST 20 U/L (15-37) 01/13/21 05:12 ALT 58 U/L (12-78) 01/13/21 05:12 Alkaline Phosphatase 138 U/L (45-117) H 01/13/21 05:12 Total Protein 5.2 gm/dl (6.4-8.2) L 01/13/21 05:12 Albumin 2.3 gm/dl (3.4-5.0) L 01/13/21 05:12 Globulin 2.9 gm/dl (2.5-4.0) 01/13/21 05:12 Albumin/Globulin Ratio 0.8 (0.9-2) L 01/13/21 05:12 Lipase 161 U/L (73-393) 01/11/21 08:02 TSH 2.300 uIu/ml (0.300-4.500) 01/09/21 22:38 Specimen Hemolysis 01/09/21 22:38 Urine Color Yellow 01/09/21 22:58 Urine Appearance Clear (Clear) 01/09/21 22:58 Urine pH 5.5 (4.5-7.5) 01/09/21 22:58 Ur Specific [place] 1.003 (1.000-1.030) 01/09/21 22:58 Urine Protein Negative (Negative) 01/09/21 22:58 Urine Glucose (UA) Negative (Negative) 01/09/21 22:58 Urine Ketones Negative (Negative) 01/09/21 22:58 Urine Blood Negative (Negative) 01/09/21 22:58 Urine Nitrite Negative (Negative) 01/09/21 22:58 Urine Bilirubin Negative (Negative) 01/09/21 22:58 Urine Urobilinogen Negative (Negative) 01/09/21 22:58 Ur Leukocyte Esterase Trace (Negative) H 01/09/21 22:58 Urine WBC (Auto) 5-10 /hpf (0-5) H 01/09/21 22:58 Urine RBC (Auto) 0-4 /hpf (0-4) 01/09/21 22:58 U Hyaline Cast (Auto) 1-5 /lpf (0-5) 01/09/21 22:58 U Epithel Cells (Auto) 5-10 /lpf (0-5) H 01/09/21 22:58 Urine Bacteria (Auto) Negative (Negative) 01/09/21 22:58 Ethyl Alcohol mg/dL < 3.0 mg/dl (0-3) 01/09/21 22:38 COVID-19 Eval Order Covid19 at [facility] 01/09/21 21:18 SARS-CoV-2 (PCR) NEGATIVE (Negative) 01/09/21 21:18 Impressions Gallbladder Ultrasound 01/09/21 21:07 ABDOMINAL ULTRASOUND, RIGHT UPPER QUADRANT HISTORY: Right upper quadrant pain.. COMPARISON: Abdominal ultrasound 07/10/2016. FINDINGS: Pancreas: The pancreatic head and tail are obscured by overlying bowel gas. The remaining portions of the pancreas are within normal limits. Liver: Unremarkable. Gallbladder: Multiple small gallstones. No gallbladder wall thickening. Trace pericholecystic fluid is noted. The technologist was unable to assess for a Lechuga's sign due to analgesia. CBD: 8 mm. Right kidney: No hydronephrosis. A 1.8 cm upper pole cyst. IMPRESSION: 1. Cholelithiasis. No gallbladder wall thickening. There is trace pericholecystic fluid. 2. Distended common bile duct measuring up to 8 mm. ACT 112: Negative or not required by law. Electronically signed by: Jermaine Presley M.D. 01/10/2021 8:04 AM Cholangiopancreatography MRI 01/10/21 02:18 MR MRCP CLINICAL HISTORY: abd pain, abn lfts right upper quadrant pain for 2 days. History of breast cancer status post mastectomy. COMPARISON: None available at the time of this dictation. TECHNIQUE: Multiplanar multisequence images were obtained of the abdomen with and without the administration of contrast. FINDINGS: Lower chest: No acute abnormality Liver: Unremarkable. No focal lesions are seen. Gallbladder and biliary tree: Cholelithiasis is seen without evidence of cholecystitis. The common bile duct is dilated measuring up to 8 mm in diameter. The intrahepatic bile ducts are relatively normal in diameter. Filling defects are noted in the distal common bile duct compatible with choledocholithiasis. Pancreas: Unremarkable, no focal lesions. Spleen: Unremarkable. Adrenals: Unremarkable. Kidneys and ureters: Previously noted renal cysts are stable. Bowel: Unremarkable. Lymph nodes Retroperitoneal: Unremarkable. Mesenteric: Unremarkable. Peritoneum: Normal Vessels: Atherosclerotic calcifications are seen. Abdominal wall: Unremarkable. Bones: Degenerative changes in the visualized spine. IMPRESSION: 1. Enlarged common bile duct with filling defects compatible with choledocholithiasis. 2. Cholelithiasis without evidence of cholecystitis. ACT 112: Negative or not required by law. Electronically signed by: Dewey Hurd M.D. 01/10/2021 9:01 AM Hospital Course (1) Gallstone pancreatitis: resolved s/p ERCP with stone removal and stent placement by [facility]. Initially covered wtih Zosyn, transitioned to Cipro/flagyl for total 10 day course. Plan for repeat ERCP in 4 weeks for stent removal (2) Choledocholithiasis: s/p ERCP, plan as above. (3) Hypophosphatemia: Noted on supplementation per home medication list. She had a couple of weeks where she wasn't eating much with a recent multi-teeth extraction followed closely by this gallstone pancreatitis. IV replacement was given for 3 days straight. Recommend close followup in the clinic with recheck in one week. Patient verbalized understanding with intent to comply. (4) Hypocalcemia: Noted to be low, with some intravenous replacement given during this admission. Repeat labwork in one week as above. (5) Transaminitis: 2/2 acute pancreatitis. Recommend repeat LFTs again in one week as outpatient to ensure this has improvement to normal. Total Time Total Time Spent Total Time Spent (In Minutes): 60 Discharge Plan Discharge Items Patient Disposition: Home - Self-Care Reason For Visit: PANCREATITIS Discharge Diagnosis: Choledocholithiasis, acute and chronic cholecystitis Condition on Discharge: Good Activity: As commented below Activity Comment: Light activity for 3 weeks Lifting: No more than 10 pounds Bathing Comment: May shower Exercise Comment: Weight 3 weeks Driving/Machine Use: 1 week Non-emergency contact: Primary Care Provider and Surgeon Call non-emergency contact if: your pain is not controlled, your temperature is above 101 and your wound has increased drainage Follow-up/Referrals: Rafa Acevedo MD, FACS [Physician] - Kristel Yañez DO [Primary Care Provider] - (Date & Time 01/18/2021 10:20 AM Provider Gavin Garland MD Department [facility] ) Diet: Regular Addtl Attending Provider Instructions: Please take all medications as instructed on discharge list below. Please continue antibiotics until the course is completed. Please follow-up with your primary care physician within one week of discharge to ensure you are still doing well after going home. This appointment will also be important to recheck your electrolytes including phosphorus and calcium which were low in the hospital. Please follow-up [facility] in 4 weeks to have your biliary stent removed. Please follow all post-operative instructions as written by your surgery team below. It was a pleasure taking care of you! Please call if you have any questions or problems. You can reach a [facility] hospitalist on duty at [facility] 24 hours a day by calling [phone]. Take care of yourself. Maryan Acuna, DO [facility] Addtl Laser Print Operator Provider Instructions: SPECIAL CARE INSTRUCTIONS: * Cover incisions and change daily for comfort/drainage. * Expect some swelling and bruising. Call your doctor if: * Temperature above 101 degrees * Pain not relieved by pain medicine ordered * There is increased drainage or redness from any incision * You have any unanswered questions or concerns [phone]. FOLLOW UP VISIT: If not already scheduled, please call the office for a follow-up visit. For next weeksome suture removal OFFICE PHONE NUMBER: Dr. Acevedo Office Pending Studies at Discharge: No Stand-Alone Forms: My [facility] Medications and DC Order Prescriptions: New ciprofloxacin HCl 500 mg Tablet 500 mg PO BID Qty: 14 RF: 0 metronidazole 500 mg Tablet 500 mg PO Q8H Qty: 21 RF: 0 Continued anastrozole 1 mg tablet 1 mg PO QAM RF: 0 lamotrigine 25 mg tablet 50 mg PO DAILY RF: 0 Phospha 250 Neutral 250 mg tablet 1 tab PO BID RF: 0 aripiprazole 10 mg tablet 10 mg PO HS RF: 0 escitalopram oxalate 5 mg tablet 5 mg PO QAM RF: 0 vitamin E [Vitamin E-400] 400 unit Capsule 400 unit PO QAM RF: 0 pyridoxine (vitamin B6) [Vitamin B-6] 250 mg Tablet 250 mg PO QAM RF: 0 oxycodone [Roxicodone] 5 mg tablet 5 mg PO Q8H PRN (Reason: Pain) RF: 0 Discontinued ondansetron HCl 8 mg Tablet 8 mg PO TID PRN (Reason: Nausea) RF: 0 bismuth subsalicylate [Pepto-Bismol] 262 mg/15 mL Suspension 524 mg PO QID PRN (Reason: Gi Upset) RF: 0 Discharge Orders: Discharge Order (Routine); Ordered 01/13/21 Ordered By: Maryan Acuna Admission Data Admit Date/Time: 01/09/21 22:47 Attending Provider: Maryan Acuna Admit Provider: Trent Gordon Primary Care Provider: Kristel Yañez Other Providers: Trent Gordon ; Kelby Ramos ; Estefany Rodriguez ; Chandan Gaming ; Nanda Mcghee ; Rene Mccloud ; Mela Ascencio ; Elizabeth Vieyra ; Guille Johnson ; Olga Vallejo ; Megan Mccullough ; Ondina Patel ; Daniela Montes De Oca ; Ricky Dasilva ; Rafa Acevedo
[2021-01-13 15:50] VITALS: BP 136/79; PULSE 50; TEMP 98.1; O2SAT 96
== END 2021-01-13 16:48 | disposition home or self-care (01) | DRG 418 ==
LOC: ED 17:41 → SUATTDRO 22:47 → 2N 22:47 → 3N 01-10 22:05
DX: K81.2 Acute cholecystitis with chronic cholecystitis; R74.01 Elevation of levels of liver transaminase levels; E83.51 Hypocalcemia; I10 Essential (primary) hypertension; Z90.49 Acquired absence of other specified parts of digestive tract; F39 Unspecified mood [affective] disorder; K85.10 Biliary acute pancreatitis without necrosis or infection; Z85.3 Personal history of malignant neoplasm of breast